=== PATIENT | male | born 1990 | race Caucasian/White ===

== ENCOUNTER 2020-07-27 22:35 | Emergency (ER) | payer MEDICAID, SELFPAY ==
[2020-07-27 22:35] VITALS: BP 128/72; PULSE 102; RESP 18; TEMP 36.9; O2SAT 97; BMI 67.2
--- NOTE | 2020-07-27 22:45 | CT_ITS ---
HISTORY: FELL DOWN 10 STAIRS, ABRASIONS AND HEAD PAIN EXAMINATION: CT Head or Brain W/O Contrast Injection .Sagittal and coronal 2-D reformats were performed on the acquisition scanner. TECHNIQUE: Multiple axial images were obtained of the head without intravenous contrast. A radiation dose optimization technique was used for this scan. IV Contrast dosage and agent: None 300 COMPARISON: None FINDINGS: BRAIN PARENCHYMA: No intra- or extra-axial hemorrhage. No evidence of acute infarct. No intracranial mass or mass effect. There is preservation of the cole/white matter interface. Posterior fossa structures are unremarkable. CSF SPACES: Appropriate for age. No hydrocephalus. Basal cisterns are patent. CALVARIUM, SKULL BASE, PARANASAL SINUSES AND MASTOID AIR CELLS: Paranasal sinuses are clear. No discrete lytic or blastic abnormalities. ORBITS: Both globes, extraocular muscles, optic nerves and retrobulbar fat appear unremarkable. ASPECTS Score for Acute Strokes: 10 CT/Brain/Head without Contrast IMPRESSION: Negative Brain CT without contrast. Individualized dose optimization techniques were used for this CT. at 2334 Reported and signed by: Alphonso Rivera MD Electronically Signed: Alphonso Rivera MD at 23:33 EST Tel , Service support ,
--- NOTE | 2020-07-27 22:45 | CT_ITS ---
HISTORY: FELL DOWN 10 STAIRS, ABRASIONS AND HEAD PAIN TECHNIQUE: Helically acquired images were obtained of the cervical spine without contrast. 2D reformatted images were reviewed. A radiation dose optimization technique was used for this scan. COMPARISON: None FINDINGS: # of images incl. paperwork: 476 Bony alignment is normal. Disc heights and vertebral body heights are normal. Facets are well aligned. Prevertebral and paraspinal soft tissues are normal. No bones within the cervical spine are fractured. Visualized portion of lung apices are normal. CT/Spine Cervical without Contras IMPRESSION: Normal cervical spine CT. Individualized dose optimization techniques were used for this CT. at 2335 Reported and signed by: Alphonso Rivera MD Electronically Signed: Alphonso Rivera MD at 23:34 EST Tel , Service support ,
--- NOTE | 2020-07-27 22:46 | ED.VIS.GEN ---
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 He notes multiple abrasions to the right leg and to his head. No loss of conscious. No nausea vomiting. He has pain mostly in the right shoulder upon to his clavicle region. He notes tingling of the right hand. He notes neck pain. He notes that that is mostly on the right side especially when he turns to the right side. Past Medical History - Allergies and Home Meds Allergies/Adverse Reactions: Allergies No Known Allergies Allergy (Verified 07/27/20 22:41) Primary Care Physician: NOT,DEFINED [NON-STAFF] - Past Medical History: - - Obesity Surgical History: noncontributory Smoking Status: Never smoker Drugs: None Review of Systems General: Denies: Chills, Fever, Sweats Eyes: Denies: Visual changes - bilaterally, Diplopia ENT: Denies: Rhinorrhea, Sore throat Cardiovascular: Reports: Chest pain. Denies: Palpitations Respiratory: Denies: Dyspnea, Cough, Dyspnea on exertion Gastrointestinal: Denies: Abdominal pain, Nausea, Vomiting, Diarrhea, Melena, Hematochezia Genitourinary: Denies: Dysuria, Hematuria, Frequency Musculoskeletal: Reports: Neck pain, Extremity Pain. Denies: Back pain Skin: Reports: Wounds. Denies: Rash Neurological: Denies: Headache, Weakness, Numbness Physical Exam Vital Signs/Narrative: Vital Signs Temp Pulse Resp BP Pulse Ox 07/27/20 22:35 98.4 F 102 H 18 128/72 H 97 Inital Vital Signs reviewed: Yes General: Well nourished, Well developed, Obese, No Acute Distress Head: Normocephalic, Trauma - Large abrasion right temporal parietal region. No bony depression noted. Eyes: Perrl, EOMI ENT: Moist mucous membranes, No rhinorrhea Neck: Supple, - - Right neck tenderness to palpation. Painful range of motion. Body habitus limits examination Cardiovascular: Regular rate, Regular rhythm, No murmurs Respiratory: No distress, CTA bilaterally, Chest tenderness - There is tenderness to palpation over the right clavicle and upper chest on the right. Abdomen: Soft, Nontender, Nondistended, Normal bowel sounds Back: Nontender, Normal Inspection Extremities: No edema, Tenderness - Tenderness palpation over the right shoulder. He is able to AB duct to 90 degrees. Skin: Normal color, No rash, Trauma - Multiple abrasions scalp, right leg. Neurological: Alert, Oriented x3, Cranial nerves II-XII grossly intact, Normal Strength, Normal Sensation Psychological: Normal affect, Normal Mood Diagnostic/Tx/Re-eval Clinical Impression(s) from Imaging Studies Brain CT 07/27/20 22:45 IMPRESSION: Negative Brain CT without contrast. Individualized dose optimization techniques were used for this CT. at 2334 Reported and signed by: Alphonso Rivera MD Electronically Signed: Alphonso Rivera MD at 23:33 EST Tel , Service support , Cervical Spine CT 07/27/20 22:45 IMPRESSION: Normal cervical spine CT. Individualized dose optimization techniques were used for this CT. at 2335 Reported and signed by: Alphonso Rivera MD Electronically Signed: Alphonso Rivera MD at 23:34 EST Tel , Service support , Clavicle X-Ray 07/27/20 22:58 IMPRESSION: Arthritic disease to the right acromioclavicular joint but I do not perceived as acute posttraumatic injury. at 2312 Reported and signed by: Alphonso Rivera MD Electronically Signed: Alphonso Rivera MD at 23:11 EST Tel , Service support , Shoulder X-Ray 07/27/20 22:58 IMPRESSION: Minimal arthritic changes to the Right shoulder. at 2314 Reported and signed by: Alphonso Rivera MD Electronically Signed: Alphonso Rivera MD at 23:13 EST Tel , Service support , - Medical Decision Making CT of the brain and cervical spine were negative for fracture. Plain films of the shoulder and clavicle were obtained. My interpretation of these films are no acute fracture. Patient received a dose of Toradol and Flexeril. Prescription for Flexeril at home. Work restrictions will be given. Patient is to expect soreness return if worsening or concerns ED Disposition - Plan for ED Patient: Disposition: Home or Assisted Living Diagnosis: Contusion of left shoulder, Multiple abrasions, Head injury due to trauma, Acute cervical myofascial strain Instructions: ED Shoulder Contusion, ED Neck Sprain or Strain, ED Head Injury (Adult) Prescriptions: cycloBENZAPRine HCl [Flexeril] 10 mg PO TID PRN #15 tab PRN Reason: Muscle Spasm Prescription Printed Additional Instructions: Follow-up with your primary care physician or physician of choice. Tylenol Motrin is fine for pain. You are to expect soreness to be worse tomorrow. However it should improve over the next week.
--- NOTE | 2020-07-27 22:58 | RAD_ITS ---
HISTORY: PAIN S/P FALL DOWN 10 STEPS Exam: Right Shoulder 3 views COMPARISON: None FINDINGS: # of images incl. paperwork: 3 XR Shoulder Min 2 Views: The humeral head is well-positioned within the glenoid fossa. No fracture or subluxation. The acromioclavicular joint is arthritic with an osteophyte but I do not believe fracture or . The adjacent chest is unremarkable. RAD/Shoulder min 2 Views IMPRESSION: Minimal arthritic changes to the Right shoulder. at 2314 Reported and signed by: Alphonso Rivera MD Electronically Signed: Alphonso Rivera MD at 23:13 EST Tel , Service support ,
--- NOTE | 2020-07-27 22:58 | RAD_ITS ---
HISTORY: Felled out appendicitis. 2 views of the right clavicle. Findings: Acromioclavicular joint arthritis is present with osteophyte. I do not believe this is an acute fracture or an before meals separation. The right humeral head sits well within the glenoid fossa. RAD/Clavicle IMPRESSION: Arthritic disease to the right acromioclavicular joint but I do not perceived as acute posttraumatic injury. at 2312 Reported and signed by: Alphonso Rivera MD Electronically Signed: Alphonso Rivera MD at 23:11 EST Tel , Service support ,
[2020-07-27 23:20] VITALS: BP 157/94; PULSE 94; RESP 16; O2SAT 98
[2020-07-28] MEDS: Ketorolac 60 MG/2 ML Vial IM (00:23)
[2020-07-28] MEDS: cycloBENZAPRine HCl 10 MG Tablet PO (00:25)
[2020-07-28 00:29] VITALS: BP 162/95; PULSE 95; RESP 19; O2SAT 97
== END 2020-07-28 00:30 | disposition home or self-care (01) ==
PROVIDERS: Emergency Provider Emergency Medicine
DX: S16.1XXA Strain of muscle, fascia and tendon at neck level, initial encounter (principal); S40.012A Contusion of left shoulder, initial encounter; S00.91XA Abrasion of unspecified part of head, initial encounter; S80.811A Abrasion, right lower leg, initial encounter; W10.9XXA Fall (on) (from) unspecified stairs and steps, initial encounter; Y93.9 Activity, unspecified; Y92.9 Unspecified place or not applicable; Y99.9 Unspecified external cause status; E66.9 Obesity, unspecified
CPT/HCPCS: 70450; 72125; 73000; 73030; 96372; 99284

== ENCOUNTER 2021-01-14 14:00 | Outpatient (RCR) | payer MEDICAID, SELFPAY ==
--- NOTE | 2020-10-17 13:05 | HP.PTEVAL_ITS ---
Patient's Visit Information TRAE MEREDITH is a 30 year old M referred to Physical Therapy by Roberto Woodruff PA-C with a diagnosis of Bilateral Knee Pain. Date of Evaluation: 10/16/20 Physical Therapist: Dottie Hernández DPT - Visit Plan Frequency: 2x /Week Duration: 4 Weeks Plan: Focus on LE and core strength/stabilization in an aquatic setting to improve functional mobility and decrease pain - Subjective Patient reports he was in an accident in Jul fell down a flight of stairs. He had bruising along the medial side of the joint and radiates to the outside of the knee joint- reports they are contusions in the legs and has tingling in the feet. MD reports that he had x-rays and it showed OA. Left is worse than right. Worst: 7.5/10. Agg: bending it more than 90 degree, stairs. Eases: Ibuprofen, deep tissue vibrator, icy hot. Best: sitting- one he sits down it takes about 30 min for the pain to goes away. Sleep: not disturbed side or belly. Does have N/T in both legs mostly the left. Describes the pain as really achy and deep inside. Does not have discomfort when he rubs it- harder under the surface of the skin. 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 When he gets down on the knee and he stands back up he feels like a knife is going through it. Fully I with ADL?s including dressing, driving, bathing. Right MCL tear on the right knee and strained ACL on the left- but was able to go back to football- high school. No other issues with his knees. No Cortisone injections or MRI from the MD. Sent him to try aquatic therapy and Ibuprofen. PMHx: none Meds: none - Objective Posture: FH, RS, can correct with verbal and tactile cues but does not maintain. Gait: toes turned out to the side with poor heel.toe pattern. Observation: obese- increased pes planus bilaterally. HR/TR: able with UE A. SLS: 3 sec on each side without UE A. Squat: unable to perform. Sit to Stand: can perform without UE A but reports pain. ROM: 0-100 degrees with restriction of tissue and pain. Strength: Core: poor, hip: 4/5 throughout, Knee: 5/5 Ankle: 5/5. Flex: HS: severe, Gastroc: severe. Palpation: tender along medial joint line- possible lymphedema in bilateral LE as skin is hard - Goals Goal 1:: Patient will be I with HEP and progression Goal Time Frame: 4-6 Weeks Goal 2:: Patient will asc/desc 8 stairs recip with 1 HR and good technique Goal Time Frame: 4-6 Weeks Goal 3:: Patient will SLS for 15 sec without LOB Goal Time Frame: 4-6 Weeks Goal 4:: Patient will demo 5/5 strength in LE Goal Time Frame: 4-6 Weeks - Rehabilitation Potential Physical Therapy Diagnosis: Patient presents with hypomobility- he has decreased painfree ROM, strength, proprioception, flexibility and muscular endurance leading to poor posture, increased pain and decreased ability to perform ADL's and work related tasks Rehabilitation Potential: Fair - Anticipated Interventions Patient/Client Instruction: Educate patient on: Benefits of Fitness Program Therapeutic Exercise to Include: Strength training, Endurance training, Balance training, Coordination, Agility training, Body mechanics, Postural training, Flexibilty training, Gait and locomotor training, Neuromotor development, In an aquatic setting, Passive ROM, Active ROM, Dynamic Lumbar Stabilization, Scapular Strength/Stabilization For the Purpose of:: To improve muscle performance and motor function Thank you for the opportunity to evaluate your patient. For Medicare and Medicare HMO plans, please review the plan of care and approve it. It will need to be FAXED BACK to us at [phone] for Medicare purposes. For Medicare only, by signing this I certify the plan of care. Please let me know if there are questions or concerns regarding this plan of care. Physician Signature: Date:
--- NOTE | 2020-10-17 13:06 | HP.PTEVAL2_ITS ---
Patient's Visit Information TRAE MEREDITH is a 30 year old M referred to Physical Therapy by Roberto Woodruff PA-C with a diagnosis of Cervicalgia. Date of Evaluation: 10/16/20 Physical Therapist: Dottie Hernández DPT - Visit Plan Frequency: 2x /Week Duration: 4 Weeks Plan: Ultrasound as modality of choice- restore ROM and scapular strength/stabilization - Subjective Subjective: Patient reports that in Jul when he fell down the stairs and his head hit a concrete wall. He went ER and they took x-rays or the upper extremities and cervical spine which were negative. No normal physical therapy and finally got in to see Dr. Lopez a couple of weeks ago. He took repeat x- rays and diagnosed him with a strain in the cervical spine and sent him to physical therapy. He spoke to him about injections and pt declined. He reports that he feels like he was hit by a freight train. He reports pain is located the occiput to his CT junction- right is worse than left. Worst: 8.5/10 Agg: moving his neck, bending forwards, turning to look behind him in the car. Best: 0/10. Eases: physical activity, deep vibrations. Once in a while he has N/T in bilateral hands but that is not new. 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 Pain can radiate to the elbow only with vibration. Describes the dull and achy and sharp/shooting depending on his mobility. Sleep: disturbed- sleeping in a chair- wakes up a lot with pain in his neck and a little in his arms. Last time he tried to sleep in a bed was a few weeks ago. Headaches- so lightheaded that he gets confused- they come and go. Chiro diagnosed him a long time ago with a neck. PARDO are not a new thing for him. He is not currently seeing a chiropractor- not in a few years. Neck bothers him more than his legs but they are both hinder him from his ADL's. Has had concussions prior. No blurred vision but sometimes dizzy but that is not new. PMHx/Meds: none Meds: none - Objective Objective: Posture: FH, RS, can correct with verbal and tactile cues but does not maintain. Gait: toes turned out to the side with poor heel.toe pattern. Palpation: tender along upper trap, bicipital groove, cervical and thoracic paraspinals, and along the medial border of the scapula. ROM: UE: WFL in all planes, Cervical Spine: flexion: decreased by 50%, Extn: decreased by 75%, SB: decreased by 50% bilateral with pain with SB right, Rotation: decreased by 50% increased pain with Rot left. Strength: Cervical isometrics: 4/5 throughout with pain, Scap: fair minus, Shoulder left: 4+/5 throughout Right: 4-/5 th roughout with pain, Elbow/Wrist/hand: bilateral 5/5. Special Test: Spurlings: positive, Distraction: positive - Goals Goal 1:: Patient will be I with HEP and progression Goal Time Frame: 4-6 Weeks Goal 2:: Patient will maintain proper posture t/o tx session to demo increased scap s.s Goal Time Frame: 4-6 Weeks Goal 3:: Patient will demo full AROM of the cervical spine Goal Time Frame: 4-6 Weeks Goal 4:: Patient will report sleeping through the night for 1 week in his bed Goal Time Frame: 4-6 Weeks - Rehabilitation Potential Physical Therapy Diagnosis: Patient presents with hypomobility-she has decreased cervical ROM, poor scapular strength/stabilization and muscular endurance leading to poor posture and increased pain with ADL's. Rehabilitation Potential: Fair - Anticipated Interventions Patient/Client Instruction: Educate patient on: Benefits of Fitness Program Therapeutic Exercise to Include: Strength training, Endurance training, Agility training, Body mechanics, Postural training, Flexibilty training, Neuromotor development, Passive ROM, Active ROM, Dynamic Lumbar Stabilization, Scapular Strength/Stabilization For the Purpose of:: To improve muscle performance and motor function Manual Therapy Techniques to Include: Mobilization, Functional dry needling, Soft tissue mobilization For the Purpose of:: To increase ROM TENS: Yes Cryotherapy (ice pack, ice massage): Yes Thermo therapy (hot pack): Yes Ultrasound (thermal/non thermal): Yes For the Purpose of:: To decrease pain Thank you for the opportunity to evaluate your patient. For Medicare and Medicare HMO plans, please review the plan of care and approve it. It will need to be FAXED BACK to us at [phone] for Medicare purposes. For Medicare only, by signing this I certify the plan of care. Please let me know if there are questions or concerns regarding this plan of care. Physician Signature: Date:
--- NOTE | 2021-01-14 14:43 | HP.PTDCS(2) ---
It has been my pleasure to treat TRAE MEREDITH referred by Roberto Woodruff PA-C, with the diagnosis of Cervicalgia for a total of 12 visit(s). Discharge Date: Please see the following information for a summary of their discharge status. Subjective: Patient reports that he still has a lot of pain in the right side and pinches but he feels that he has more range of motion. % Improvement: 50 Objective/Function/Assessment: Posture: FH, RS, can correct with verbal and tactile cues but does not maintain. Gait: toes turned out to the side with poor heel.toe pattern. Palpation: tender along upper trap, bicipital groove, cervical and thoracic paraspinals, and along the medial border of the scapula. ROM: UE: WFL in all planes, Cervical Spine: WLF in all planes Strength: Cervical isometrics: 4+/5 throughout with pain, Scap: fair minus, Shoulder left: 4+/5 throughout Right: 4+/5 throughout with pain, Elbow/Wrist/hand: bilateral 5/5. Special Test: Spurlings: positive, Distraction: positive Patient Goals: Improve Mobility, Improve Function, Decrease Pain, Alleviate Pain, Improve ROM, Sleep Normal Goal 1:: Patient will be I with HEP and progression Goal Progress: Goal Met Goal 2:: Patient will maintain proper posture t/o tx session to demo increased scap s.s Goal Progress: Progressing Goal 3:: Patient will demo full AROM of the cervical spine Goal Progress: Goal Met Goal 4:: Patient will report sleeping through the night for 1 week in his bed Goal Progress: Progressing Plan: 01/14/2021 Discharge- MRI and possible injections If there are questions or concerns regarding this patient's physical therapy, please feel free to call me at [phone]. Thank you for the referral of this patient. Sincerely, Dottie Hernández DPT
--- NOTE | 2021-01-14 14:46 | HP.PTREVAL ---
Roberto Woodruff PA-C, It has been my pleasure to treat TRAE MEREDITH over the last 12 visits for Bilateral Knee Pain. Please see the progress note below for an update on the physical therapy plan of care! Subjective: Patient reports that doing PT his mobility is back but its still not there yet. He still has swelling along the medial knee which is accompanied by pain. Worst: 8/10 Agg: walking. The pain comes and goes. He feels that he has more strength and endurance to gain. Objective/Function: Posture: FH, RS, can correct with verbal and tactile cues but does not maintain. Gait: toes turned out to the side with poor heel.toe pattern. Observation: obese- increased pes planus bilaterally. HR/TR: able with UE A. SLS: 7 sec on each side without UE A. Squat: unable to perform. Sit to Stand: can perform without UE A but reports pain. ROM: 0-110 degrees with restriction of tissue and pain. Strength: Core: fair, hip: 4+/5 throughout, Knee: 5/5 Ankle: 5/5. Flex: HS: severe, Gastroc: severe. Palpation: tender along medial joint line- possible lymphedema in bilateral LE as skin is hard and dimpled Plan Plan: 01/14/2021: Continue with aquatic therapy to progress towards goals. *f/u with supervising PT next appt. Would recommend continued AT at this time d/t potential for greater improvement. Progress is slow-going. Seems to be limited by WBing and therefore painfulnesss, minimal progressions noted at this point d/t this. *f/u with new HEP SLS glute med. strengthening. Focus on LE and core strength/stabilization in an aquatic setting to improve functional mobility and decrease pain Balance/Gait/Functional tests - Balance/Special Test Scores Oswestry Neck Score: 22 Lower Extremity Functional Score: 41 Goals Goal 1:: Patient will be I with HEP and progression Goal Time Frame: 4-6 Weeks Goal 2:: Patient will asc/desc 8 stairs recip with 1 HR and good technique Goal Time Frame: 4-6 Weeks Goal 3:: Patient will SLS for 15 sec without LOB Goal Time Frame: 4-6 Weeks Goal 4:: Patient will demo 5/5 strength in LE Goal Time Frame: 4-6 Weeks Anticipated Interventions Patient/Client Instruction: Educate patient on: Benefits of Fitness Program Therapeutic Exercise to Include: Strength training, Endurance training, Balance training, Coordination, Agility training, Body mechanics, Postural training, Flexibilty training, Gait and locomotor training, Neuromotor development, In an aquatic setting, Passive ROM, Active ROM, Dynamic Lumbar Stabilization, Scapular Strength/Stabilization For the Purpose of:: To improve muscle performance and motor function Please do not hesitate to contact me at [phone] by phone or if you have questions or concerns regarding this new plan of care! Sincerely, SABINO GaminoT
== END 2021-01-14 19:00 | disposition home or self-care (01) ==
LOC: PT 14:00
PROVIDERS: Referring Provider Physician Assistant Surgical; Visit Provider Physician Assistant Surgical
DX: S13.4XXD Sprain of ligaments of cervical spine, subsequent encounter (principal); S80.01XD Contusion of right knee, subsequent encounter; S80.02XD Contusion of left knee, subsequent encounter; X58.XXXD Exposure to other specified factors, subsequent encounter; M17.0 Bilateral primary osteoarthritis of knee
CPT/HCPCS: 97035; 97110; 97113; 97162; 97164

== ENCOUNTER 2021-02-15 15:17 | Emergency (ER) | payer MEDICAID, SELFPAY ==
[2021-02-15 15:18] VITALS: BP 129/84; PULSE 107; RESP 20; TEMP 37.1; O2SAT 95; BMI 66.0
--- NOTE | 2021-02-15 16:33 | EX.ED.DYSGE1 ---
HPI History of Present Illness Chief Complaint: Cellulitis Detail of Chief Complaint: Redness to left leg Informant: patient Narrative Narrative: Patient presents to the emergency department with redness and swelling to his left leg that started yesterday. Initially started with some discomfort in the leg. Today he has had some chills and a fever up to 100 when he was seen at urgent care. He was referred to the ER. Patient also states he has had decreased ability to taste and smell here recently. Patient is worried about Covid although he states he has had both his Covid vaccines. Patient otherwise has no medical history. PFSH PFSH Home Medications NK 02/15/21 [History Last Taken Unknown] cephalexin 500 mg PO Q6 #40 capsule 02/15/21 [Rx Last Taken Unknown] sulfamethoxazole-trimethoprim 1 tab PO BID #20 tablet 02/15/21 [Rx Last Taken Unknown] Allergy/AdvReac Type Severity Reaction Status Date / Time No Known Allergies Allergy Verified 02/15/21 15:20 Social History Smoking Status: Never smoker ROS [facility] ED Constitutional Constitutional ED: Reports systems reviewed and no addt'l complaints, except as documented and fever(s); Denies body ache(s), change in weight or chills Eyes Eyes: Denies acute decrease in peripheral vision, change in vision, double vision or loss of vision ENT ENT ED: Reports none; Denies ear pain, lip swelling, loss taste/smell, neck pain, otalgia or sore throat Cardiovascular Cardiovascular: Reports none; Denies abdominal pain, chest pain with activity, leg edema, lightheadedness, palpitations, rapid heart rate or syncope Respiratory/Chest Respiratory/Chest: Reports none and cough; Denies change in mental status, dry cough, dyspnea, hemoptysis, shortness of breath at rest or shortness of breath with exertion Gastrointestinal Gastrointestinal: Reports none; Denies abdominal pain, change in stool character, diarrhea, hematemesis, hematochezia, melena, rectal bleeding or vomiting Genitourinary Genitourinary ED: Reports none; Denies abdominal discomfort, anuria, dysuria, genital pain or polyuria Musculoskeletal Musculoskeletal: Reports none and myalgias; Denies arthralgias, back pain, difficulty walking, extremity pain or muscle weakness Integumentary Reports none and rash; Denies abscess Neurologic Neurologic: Reports none and headache(s); Denies abnormal gait, confusion, focal weakness, frequent falls, loss of vision, numbness, paresthesias, radicular pain, vertigo or weakness Psychiatric Psychiatric: Reports systems reviewed and no addt'l complaints, except as documented and none; Denies behavioral changes, confusion, difficulty concentrating, hallucinations, suicidal ideation, tactile hallucinations or visual hallucinations Endocrine Endocrinology: Denies none, cold intolerance, excessive sweating, fatigue or heat intolerance Hematologic/Lymphatic Hematologic/Lymphatic: Reports none; Denies anemia, easy bleeding or easy bruising Allergic/Immunologic Allergic/Immunologic ED: Denies as per HPI, none, lip swelling, mouth swelling, throat swelling, tongue swelling or hives EXAM Physical Exam Const Vital Signs: 02/15/21 15:18 02/15/21 17:05 02/15/21 17:45 Temperature 98.7 F 98.8 F Temperature Source Temporal Oral Pulse Rate 107 H 91 Respiratory Rate 20 H 16 Respiratory Effort Normal Non-Labored Respiratory Pattern Normal Blood Pressure 129/84 H 148/79 H Blood Pressure Mean 99 102 Pulse Ox 95 99 Oxygen Delivery Method Room Air Room Air 02/15/21 18:54 Temperature 98.8 F Temperature Source Oral Pulse Rate 89 Respiratory Rate 18 Respiratory Effort Respiratory Pattern Blood Pressure 153/87 H Blood Pressure Mean 109 Pulse Ox 97 Oxygen Delivery Method Room Air Positive well nourished and well developed General Appearance ED: well developed and NAD HEENT Reports TM's clear and moist mucous membranes normocephalic and atraumatic; Negative for trauma or tenderness Tympanic Membrane ED: Yes TM's clear Eyes PERRL and EOMs intact bilaterally General Eye ED: Negative for pale conjunctiva or scleral icterus Neck no lymphadenopathy, supple and no JVD General: Negative for tenderness Chest Wall inspection of chest normal and palpation of chest normal Chest: Negative for tenderness Resp normal respiratory effort and clear to auscultation bilaterally Effort and Inspection: Negative for respiratory distress or pain with movement Auscultation: Negative for rhonchi, wheezes or diminished lung sounds Cardio regular rate, regular rhythm, S1 normal heart sound, S2 normal heart sound and no murmurs Peripheral Pulses: pulses 2+ throughout GI normal to inspection, nondistended, normoactive bowel sounds, soft to palpation, non-tender, non-distended and no masses GI Narrative: Patient is morbidly obese and has a large umbilical hernia that is nontender. Back/Spine no CVA tenderness and no thoracic nor lumbar tenderness Extremity Extremity Narrative: Patient has diffuse erythema of the left lower extremity below the knee consistent with cellulitis. Patient has diffuse edema and lymphedema of both lower extremities. General Extremety ED: Negative for edema General Extremity: Negative for edema Neuro oriented x3, CN's II-XII intact bilaterally, no sensory deficits noted and gait normal Sensorium / Orientation: awake, alert, oriented to person, oriented to place and oriented to time Motor Exam: strength 5/5 throughout and strength abnormal Psych mental status grossly normal Skin no rashes or lesions noted and no wounds MDM MDM MDM Narrative Medical decision making narrative: Labs discussed with patient. Patient was given Unasyn 3 g IV. Case was with hospitalist and it was not felt that patient met admission criteria. His lactate is normal. He is got a normal white blood cell count and otherwise patient is relatively healthy. Patient had the area of erythema outlined with marker. He will be started on Keflex and Bactrim and advised to return if increased redness, fevers, or conditions worsen anyway. Lab Data Attestation: I reviewed the patient's lab results. Labs: Laboratory Results - last 24 hr 02/15/21 02/15/21 02/15/21 17:10 17:10 17:10 WBC 10.1 RBC 4.56 L Hgb 14.1 Hct 42.9 MCV 94.1 H MCH 30.9 MCHC 32.9 RDW Std Deviation 44.0 H RDW Coeff of Devin 12.7 Plt Count 189 MPV 10.4 Immature Gran % (Auto) 0.500 Neut % (Auto) 78.7 H Lymph % (Auto) 9.4 L Rice % (Auto) 10.0 Eos % (Auto) 1.0 Baso % (Auto) 0.4 Absolute Neuts (auto) 8.0 H Absolute Lymphs (auto) 0.95 Nucleated RBC % 0 Sodium 140 Potassium 3.7 Chloride 103 Carbon Dioxide 30.0 Anion Gap 7 BUN 12 Creatinine 0.91 Estim Creat Clear Calc 131.70 Est GFR (MDRD) Af Amer 123 Est GFR (MDRD) Non-Af 102 BUN/Creatinine Ratio 13.2 Glucose 99 Lactic Acid 0.9 Calcium 9.1 Discharge Plan Triage Chief Complaint: Cellulitis ED Provider: Abigail Chandler Dx/Rx/DC Orders Clinical Impression: Cellulitis of left leg Instructions: ED Cellulitis, Discharge Instructions for ... Prescriptions: New sulfamethoxazole-trimethoprim [sulfamethoxazole-trimethoprim] 1 TABLET tablet 1 tab PO BID Qty: 20 RF: 0 cephalexin [cephalexin] 500 MG capsule 500 mg PO Q6 Qty: 40 RF: 0 No Action NK RF: 0 Primary Care Provider: Care Physician,No Primary Referrals: Giovanny Townsend MD [STAFF PHYSICIAN] - 3-5 Days Care Physician,No Primary [Primary Care Provider] - Disposition Disposition: Home, Self Care
[2021-02-15 17:21] LABS: Absolute Lymphocyte Count 0.95 X10^3/uL (0.83-4.51); Basophil# 0.04 X10^3/uL; Basophil% 0.4 % (0-1); Hematocrit 42.9 % (40-54); Hemoglobin 14.1 g/dL (13.0-16.5); Lymphocyte # 0.95 X10^3/ul (0.83-4.51); Lymphocyte % 9.4 % (19-41); Mean Corp Hgb Conc 32.9 g/dL (32-36); Mean Corpuscular Hgb 30.9 pg (27.0-32.0); Mean Corpuscular Volume 94.1 fL (80-94); Mean Platelet Vol. 10.4 fl (6.2-12.0); Monocyte# 1.01 X10^3/uL; NRBC Flagged by Analyzer 0 % (0-5); Neutrophil # 7.98 X10^3/uL (2.7-7.7); Neutrophil % 78.7 % (47-70); Platelet Count 189 K/mm3 (150-450); RBC Distribution Width CV 12.7 % (11.6-14.6); Red Blood Count 4.56 M/mm3 (4.6-6.2); White Blood Count 10.1 K/mm3 (4.4-11.0)
[2021-02-15 17:35] LABS: Anion Gap 7 (5-15); BUN 12 mg/dL (7-18); BUN/Creat Ratio 13.2 RATIO (10-20); Calcium,Total 9.1 mg/dL (8.5-10.1); Chloride 103 mmol/L (98-107); Creatinine, Serum 0.91 mg/dL (0.70-1.30); EST Glomerular Filtration Rate 102 mL/min (>60); Est Glom Filt Rate - Afr Amer 123 mL/min (>60); Glucose 99 mg/dL (74-106); Potassium 3.7 mmol/L (3.5-5.1); Sodium Level 140 mmol/L (136-145)
[2021-02-15 17:43] LABS: Lactic Acid 0.9 mmol/L (0.4-1.9)
[2021-02-15] MEDS: 0.9% Normal Saline 1,000 ML 150 ML IV (17:43)
[2021-02-15 17:45] VITALS: BP 148/79; PULSE 91; RESP 16; TEMP 37.1; O2SAT 99
[2021-02-15 18:54] VITALS: BP 153/87; PULSE 89; RESP 18; TEMP 37.1; O2SAT 97
[2021-02-15 20:25] VITALS: BP 149/78; PULSE 101; O2SAT 97
== END 2021-02-15 20:30 | disposition home or self-care (01) ==
PROVIDERS: Emergency Provider Emergency Medicine
DX: L03.116 Cellulitis of left lower limb (principal); Z20.822 Contact with and (suspected) exposure to COVID-19; K42.9 Umbilical hernia without obstruction or gangrene; I89.0 Lymphedema, not elsewhere classified; E66.01 Morbid (severe) obesity due to excess calories
CPT/HCPCS: 80048; 83605; 85025; 87040; 87426; 96361; 96365; 96366; 99284; J7030; A4216; J0295

== ENCOUNTER → 2021-12-25 | Outpatient (CLI) | payer MEDICAID, SELFPAY ==
[2021-12-25 12:32] LABS: Absolute Lymphocyte Count 1.23 X10^3/uL (0.83-4.51); Basophil# 0.06 X10^3/uL; Basophil% 0.7 % (0-1); Eosinophil# 0.27 X10^3/uL; Eosinophils% 3.2 % (0-5); Hematocrit 46.8 % (40-54); Hemoglobin 15.5 g/dL (13.0-16.5); Lymphocyte # 1.23 X10^3/ul (0.83-4.51); Lymphocyte % 14.6 % (19-41); Mean Corp Hgb Conc 33.1 g/dL (32-36); Mean Corpuscular Hgb 31.3 pg (27.0-32.0); Mean Corpuscular Volume 94.4 fL (80-94); Mean Platelet Vol. 11.8 fl (6.2-12.0); Monocyte# 0.89 X10^3/uL; Monocyte% 10.5 % (0-10); NRBC Flagged by Analyzer 0 % (0-5); Neutrophil # 5.96 X10^3/uL (2.7-7.7); Neutrophil % 70.5 % (47-70); Platelet Count 221 K/mm3 (150-450); RBC Distribution Width CV 12.2 % (11.6-14.6); RBC Distribution Width SD 42.4 fl (35.1-43.9); Red Blood Count 4.96 M/mm3 (4.6-6.2); White Blood Count 8.5 K/mm3 (4.4-11.0)
[2021-12-25 12:35] LABS: ALB/GLOB Ratio 1.1 RATIO (0.9-2.4); AST(SGOT) 25 U/L (15-37); Alanine Aminotransfer ALT/SGPT 54 U/L (16-61); Albumin, Serum 3.9 g/dL (3.2-5.0); Alkaline Phosphatase 72 U/L (45-117); Anion Gap 5 (5-15); BUN 21 mg/dL (7-18); BUN/Creat Ratio 22.8 RATIO (10-20); Calcium,Total 9.2 mg/dL (8.5-10.1); Chloride 104 mmol/L (98-107); Cholesterol 176 mg/dL (200); Creatinine, Serum 0.92 mg/dL (0.70-1.30); EST Glomerular Filtration Rate 100 mL/min (>60); Est Glom Filt Rate - Afr Amer 121 mL/min (>60); Globulin 3.6 g/dL (2.2-4.2); Glucose 110 mg/dL (74-106); High Density Lipoprotein 34 mg/dL; Potassium 4.3 mmol/L (3.5-5.1); Protein, Total 7.5 g/dL (6.4-8.2); Sodium Level 138 mmol/L (136-145); Thyroid Stim Hormone (TSH) 0.97 uIU/mL (0.358-3.74); Triglycerides 78 mg/dL; Very Low Density Lipoprotein 16 mg/dL (5-40)
[2021-12-25 12:51] LABS: Hemoglobin A1c 5.6 % (3.8-5.6)
== END | disposition home or self-care (01) ==
LOC: BIMLAB 09:32
PROVIDERS: PCP Internal Medicine; Referring Provider Internal Medicine; Visit Provider Internal Medicine
DX: E66.01 Morbid (severe) obesity due to excess calories (principal); K52.9 Noninfective gastroenteritis and colitis, unspecified
CPT/HCPCS: 36415; 80053; 80061; 83036; 84439; 84443; 85025

== ENCOUNTER → 2022-02-25 | Outpatient (CLI) | payer MEDICAID, SELFPAY | END | disposition home or self-care (01) | LOC: SL 19:59 | PROVIDERS: PCP Internal Medicine; Referring Provider Internal Medicine; Visit Provider Internal Medicine | DX: G47.10 Hypersomnia, unspecified (principal) | CPT/HCPCS: 95810 ==

== ENCOUNTER 2024-07-16 15:43 | Inpatient (IN) | payer MEDICAID, SELFPAY ==
[2024-07-16] VITALS (26 sets, daily range): BP systolic 56–138; BP diastolic 33–88; PULSE 93–129; RESP 12–33; TEMP 35.8; O2SAT 89–98; BMI 64.2
[2024-07-16 16:19] LABS: Bedside Glucose 229 mg/dL (74-106)
--- NOTE | 2024-07-16 16:29 | EKG12_ITS ---
Test Reason : CP Blood Pressure : */* mmHG Vent. Rate : 100 BPM Atrial Rate : 100 BPM P-R Int : 168 ms QRS Dur : 94 ms QT Int : 354 ms P-R-T Axes : 24 31 32 degrees QTcB Int : 456 ms Normal sinus rhythm Normal ECG Confirmed by Julio C Hu ([id number]), international editorial producer KAMLESH GRIGSBY ([id number]) on 07/17/2024 10:02:00 AM Referred By: Confirmed By: Julio C Hu
--- NOTE | 2024-07-16 16:29 | EDS_ITS ---
HPI History of Present Illness Chief Complaint: General Illness Informant: patient and family Narrative Narrative: Patient here with sister for evaluation. 3-day history fatigue myalgias and productive cough. No fevers. No vomiting diarrhea. Decreased appetite. Decreased p.o. intake. Denies dysuria. Sick contacts with another sister who just got diagnosed with influenza A. Patient denies any chronic medical history. Denies dyspnea.Patient was doctor's office with his mother when he felt more symptoms. PFSH PFSH Medical History Bilateral foot pain Hypersomnolence Chronic diarrhea Morbid obesity COVID-19 Umbilical hernia Chronic neck pain Lymphedema Migraines Cellulitis History of fracture Chronic bronchitis Seasonal allergies Home Medications ?Medication ?Instructions ?Recorded ?Last Taken ?Type ibuprofen 200 mg capsule 200 mg PO Q6H PRN fever or p ain 04/24/21 Unknown History fluticasone propionate 50 2 spray intranasal DAILY 03/30 Unknown History mcg/actuation nasal spray,suspension Allergy/AdvReac Type Severity Reaction Status Date / Time No Known Allergies Allergy Verified 07/16/24 15:49 Family History Father Cancer Hypertension Hyperlipemia Diabetes Heart disease Mother Cancer Hyperlipemia Breast cancer Diabetes Sister Diabetes Other Asthma Surgical History History of local excision of skin lesion Social History Smoking Status: Never smoker alcohol intake: never substance use type: does not use ROS ROS ED Constitutional Constitutional ED: Reports other Details: Fatigue, decreased appetite ; Denies chills, fever(s) or sweats ENT ENT ED: Denies sore throat Cardiovascular Cardiovascular: Denies chest pain, leg edema, palpitations or racing heartbeat Respiratory/Chest Respiratory/Chest: Reports cough; Denies dyspnea or dyspnea on exertion Gastrointestinal Gastrointestinal: Denies abdominal pain, diarrhea, nausea or vomiting Genitourinary Genitourinary ED: Denies dysuria, hematuria or urinary frequency Musculoskeletal Musculoskeletal: Reports myalgias; Denies back pain, extremity pain or neck pain Integumentary Denies rash or wounds Neurologic Neurologic: Denies headache(s), paresthesias or weakness EXAM Physical Exam Const Vital Signs: 07/16/24 15:44 07/16/24 16:30 07/16/24 16:30 Temperature 96.4 F L Temperature Source Axillary Pulse Rate 129 H 121 H Pulse Rate [Lying] Pulse Rate [Sitting (for 1 minute prior to obtaining)] Respiratory Rate 20 H 20 H Respiratory Effort Normal Respiratory Pattern Normal Blood Pressure 100/70 75/56 L Blood Pressure [Lying] Blood Pressure [Sitting (for 1 minute prior to obtaining)] Blood Pressure Mean 80 62 Blood Pressure Mean [Lying] Blood Pressure Mean [Sitting (for 1 minute prior to obtaining)] Pulse Ox 97 92 Oxygen Delivery Method Room Air Room Air Oxygen Flow Rate (L/min) 07/16/24 16:33 07/16/24 16:42 07/16/24 17:02 Temperature Temperature Source Pulse Rate 125 H 123 H Pulse Rate [Lying] Pulse Rate [Sitting (for 1 minute prior to obtaining)] Respiratory Rate 21 H 33 H Respiratory Effort Normal Respiratory Pattern Normal Blood Pressure 84/65 L Blood Pressure [Lying] Blood Pressure [Sitting (for 1 minute prior to obtaining)] Blood Pressure Mean 71 Blood Pressure Mean [Lying] Blood Pressure Mean [Sitting (for 1 minute prior to obtaining)] Pulse Ox 93 Oxygen Delivery Method Room Air Oxygen Flow Rate (L/min) 07/16/24 17:05 07/16/24 17:05 07/16/24 17:30 Temperature Temperature Source Pulse Rate 116 H 115 H Pulse Rate [Lying] Pulse Rate [Sitting (for 1 minute prior to obtaining)] Respiratory Rate 14 23 H Respiratory Effort Respiratory Pattern Blood Pressure 119/74 119/74 56/33 L Blood Pressure [Lying] Blood Pressure [Sitting (for 1 minute prior to obtaining)] Blood Pressure Mean 89 84 42 Blood Pressure Mean [Lying] Blood Pressure Mean [Sitting (for 1 minute prior to obtaining)] Pulse Ox 94 Oxygen Delivery Method Room Air Oxygen Flow Rate (L/min) 07/16/24 17:31 07/16/24 17:37 07/16/24 17:40 Temperature Temperature Source Pulse Rate 112 H 120 H Pulse Rate [Lying] Pulse Rate [Sitting (for 1 minute prior to obtaining)] Respiratory Rate 20 H 21 H Respiratory Effort Respiratory Pattern Blood Pressure 86/58 L 89/59 L Blood Pressure [Lying] Blood Pressure [Sitting (for 1 minute prior to obtaining)] Blood Pressure Mean 67 68 Blood Pressure Mean [Lying] Blood Pressure Mean [Sitting (for 1 minute prior to obtaining)] Pulse Ox 95 91 95 Oxygen Delivery Method Room Air Room Air Oxygen Flow Rate (L/min) 07/16/24 18:00 07/16/24 18:30 07/16/24 18:33 Temperature Temperature Source Pulse Rate 96 Pulse Rate [Lying] Pulse Rate [Sitting (for 1 minute prior to obtaining)] Respiratory Rate 24 H Respiratory Effort Respiratory Pattern Blood Pressure 98/53 L 115/86 H Blood Pressure [Lying] Blood Pressure [Sitting (for 1 minute prior to obtaining)] Blood Pressure Mean 66 94 Blood Pressure Mean [Lying] Blood Pressure Mean [Sitting (for 1 minute prior to obtaining)] Pulse Ox 95 89 Oxygen Delivery Method Room Air Room Air Oxygen Flow Rate (L/min) 07/16/24 18:34 07/16/24 19:00 07/16/24 19:13 Temperature Temperature Source Pulse Rate 97 101 H Pulse Rate [Lying] Pulse Rate [Sitting (for 1 minute prior to obtaining)] Respiratory Rate 23 H 23 H 16 Respiratory Effort Respiratory Pattern Blood Pressure 107/77 116/79 Blood Pressure [Lying] Blood Pressure [Sitting (for 1 minute prior to obtaining)] Blood Pressure Mean 84 89 Blood Pressure Mean [Lying] Blood Pressure Mean [Sitting (for 1 minute prior to obtaining)] Pulse Ox 92 93 95 Oxygen Delivery Method Room Air Oxygen Flow Rate (L/min) 07/16/24 19:15 07/16/24 19:30 07/16/24 19:31 Temperature Temperature Source Pulse Rate 118 H 108 H Pulse Rate [Lying] 112 H Pulse Rate [Sitting (for 1 minute prior to obtaining)] 123 H Respiratory Rate 24 H Respiratory Effort Respiratory Pattern Blood Pressure 90/65 80/64 L Blood Pressure [Lying] 116/79 Blood Pressure [Sitting (for 1 minute prior to obtaining)] 80/64 L Blood Pressure Mean 71 71 Blood Pressure Mean [Lying] 91 Blood Pressure Mean [Sitting (for 1 minute prior to obtaining)] 69 Pulse Ox 98 96 Oxygen Delivery Method Nasal Cannula Oxygen Flow Rate (L/min) 2 07/16/24 20:00 07/16/24 20:30 07/16/24 21:00 Temperature Temperature Source Pulse Rate 105 H 99 Pulse Rate [Lying] Pulse Rate [Sitting (for 1 minute prior to obtaining)] Respiratory Rate 13 12 Respiratory Effort Respiratory Pattern Blood Pressure 95/68 111/77 105/73 Blood Pressure [Lying] Blood Pressure [Sitting (for 1 minute prior to obtaining)] Blood Pressure Mean 76 86 85 Blood Pressure Mean [Lying] Blood Pressure Mean [Sitting (for 1 minute prior to obtaining)] Pulse Ox 96 96 96 Oxygen Delivery Method Nasal Cannula Oxygen Flow Rate (L/min) 2 07/16/24 21:30 07/16/24 22:00 07/16/24 22:30 Temperature Temperature Source Pulse Rate 102 H 93 Pulse Rate [Lying] Pulse Rate [Sitting (for 1 minute prior to obtaining)] Respiratory Rate 21 H 22 H Respiratory Effort Respiratory Pattern Blood Pressure 109/71 122/83 H 126/88 H Blood Pressure [Lying] Blood Pressure [Sitting (for 1 minute prior to obtaining)] Blood Pressure Mean 84 95 99 Blood Pressure Mean [Lying] Blood Pressure Mean [Sitting (for 1 minute prior to obtaining)] Pulse Ox 95 95 93 Oxygen Delivery Method Nasal Cannula Oxygen Flow Rate (L/min) 2 07/16/24 23:00 Temperature Temperature Source Pulse Rate 103 H Pulse Rate [Lying] Pulse Rate [Sitting (for 1 minute prior to obtaining)] Respiratory Rate 24 H Respiratory Effort Respiratory Pattern Blood Pressure 138/85 H Blood Pressure [Lying] Blood Pressure [Sitting (for 1 minute prior to obtaining)] Blood Pressure Mean 102 Blood Pressure Mean [Lying] Blood Pressure Mean [Sitting (for 1 minute prior to obtaining)] Pulse Ox 94 Oxygen Delivery Method Nasal Cannula Oxygen Flow Rate (L/min) 2 Positive well nourished and well developed General Appearance ED: well developed and NAD HEENT HEENT Narrative: Mild dry mucosal membranes. normocephalic and atraumatic Eyes General Eye ED: Yes normal appearance of both eyes Neck full ROM Chest Wall Chest: Negative for tenderness Resp normal respiratory effort and normal air movement Effort and Inspection: symmetric chest movement; Negative for respiratory distress Cardio regular rhythm and no murmurs Rate: tachycardic Peripheral Pulses: pulses 2+ throughout GI normal to inspection, nondistended, normoactive bowel sounds and non-tender GI Narrative: Suprapubic ventral hernia reducible, nontender Palpation: Negative for guarding or rebound tenderness present Extremity normal to inspection General Extremety ED: Negative for edema or tenderness General Extremity: Negative for edema Neuro oriented x3 and no sensory deficits noted Sensorium / Orientation: awake and alert Skin no rashes or lesions noted and no wounds MDM MDM MDM Narrative Medical decision making narrative: Interventions / MDM: Differential diagnosis: Viral syndrome, influenza, syncope Diagnosis considered but do not suspect: N/A My EKG interpretation: Sinus tachycardia rate of 133, no ST or T wave changes. EKG #2 at 2251: Sinus rate of 100, no ST changes. Imaging independently reviewed and interpreted by myself: 2 view chest x-ray: No acute process. External documents reviewed: N/A Test considered but not ordered:N/A ED course: Patient tachycardic with decreased p.o. intake. Increasing cough with myalgias. Tachycardia likely from decreased p.o. intake. Will establish IV for fluids. Will check basic labs, COVID, flu, RSV. Two-view chest x-ray. Will reevaluate. 1709: Called back to the room patient went to x-ray rapid was called due to syncopal episode. He was sitting upright for a lateral x-ray, reported by data reduction technician and his eyes rolled back he passed out. He was agonal breathing by time he came back to room he is back to normal. He states he felt increasing thirst at that time. Blood glucose check 229. Alert and awake on my evaluation. IV fluids are running heart rate down to 120s. Had blood pressure 84/65. Likely vasovagal episode. Awaiting test results. Current hemoglobin 13.9 white count 12.1. 1800: Creatinine 1.28 previously 0.91. Sodium 134 potassium 4.1. Blood pressure 89/59 heart rate 110s on recheck. Influenza A positive. COVID and RSV negative. Chest x-ray interpreted myself negative for any acute process. Awaiting final read. Will give additional liter of fluids. Discussed results with patient. Will reevaluate after additional fluids. 0: After 2 L of fluid heart rate did improve, attempted to ambulate however and per nursing patient is unstable and he was orthostatic positive dropping from 110s to 80s. He is continued on fluids. He had a syncopal episode with influenza A. With worsening symptoms while in the ED with syncopal episode, discussed admission however requests being transferred to [facility]. Will work on transfer at this time. 2021: I spoke with [facility] transfer with Dr. Alegre, discussed patient's history and findings and day 3 of symptoms. Outside the window for Tamiflu. However aches excepted for influenza with syncope. Will await bed for transfer. 2230: Nursing reported patient had some chest discomfort. Repeat EKG shows no acute findings. Awaiting bed for transport. Re-evaluation: stable Disposition discussed with patient/family/significant other: Patient Case discussed with consulting clinician: [facility] Hospitalist This note was generated with [employer] dictation software. It may contain incorrect words, spelling, and punctuation that were not noted in checking the note before signing. Lab Data Attestation: I reviewed the patient's lab results. Labs: Laboratory Results - last 24 hr 07/16/24 07/16/24 07/16/24 15:56 16:28 17:06 WBC 12.1 H RBC 4.49 L Hgb 13.9 Hct 42.2 MCV 94.0 MCH 31.0 MCHC 32.9 RDW Std Deviation 43.0 RDW Coeff of Devin 12.5 Plt Count 255 MPV 11.7 Immature Gran % (Auto) 0.700 Neut % (Auto) 76.5 H Lymph % (Auto) 13.2 L Cedar % (Auto) 6.9 Eos % (Auto) 2.2 Baso % (Auto) 0.5 Absolute Neuts (auto) 9.3 H Absolute Lymphs (auto) 1.60 Nucleated RBC % 0 Sodium 134 L Potassium 4.1 Chloride 106 Carbon Dioxide 16.0 L Anion Gap 12 BUN 18 Creatinine 1.28 Estim Creat Clear Calc 153.81 Est GFR (MDRD) Af Amer 82 Est GFR (MDRD) Non-Af 68 BUN/Creatinine Ratio 14.1 Glucose 262 H Calcium 8.5 POC Glucose 229 H 294 H Radiography Diagnostic Testing: Clinical Impression(s) from Imaging Studies Chest X-Ray 07/16/24 17:05 IMPRESSION: Negative chest radiograph given limitations. Reading Location: [facility] Discharge Plan Triage Chief Complaint: General Illness ED Provider: Tl Arambula Dx/Rx/DC Orders Clinical Impression: Influenza A, Dehydration, Syncope, Orthostasis, Apnea, sleep, Hyperglycemia Prescriptions: No Action ibuprofen 200 mg capsule 200 mg PO Q6H PRN (Reason: fever or pain) fluticasone propionate 50 mcg/actuation spray,suspension 2 spray INTRANASAL DAILY Primary Care Provider: Gerald Soria Referrals: Paul Allen MD [Med Staff - Active Staff] - Print Language: Bruneian Disposition Disposition: DC/Tx to Another Type of HCF
[2024-07-16] MEDS: 0.9% Normal Saline (1000mL) 1,000 ML 1000 ML IV (16:44)
[2024-07-16] MEDS: Acetaminophen 500 MG Tablet 1000 MG PO (16:44)
[2024-07-16 16:46] LABS: Absolute Neutrophil Count 9.3 X10^3/uL (2.0-7.7); Basophil# 0.06 X10^3/uL; Basophil% 0.5 % (0-1); Eosinophil# 0.27 X10^3/uL; Eosinophils% 2.2 % (0-5); Hematocrit 42.2 % (40-54); Hemoglobin 13.9 g/dL (13.0-16.5); Lymphocyte % 13.2 % (19-41); Mean Corp Hgb Conc 32.9 g/dL (32-36); Mean Platelet Vol. 11.7 fl (6.2-12.0); Monocyte# 0.83 X10^3/uL; Monocyte% 6.9 % (0-10); NRBC Flagged by Analyzer 0 % (0-5); Neutrophil # 9.25 X10^3/uL (2.7-7.7); Neutrophil % 76.5 % (47-70); Platelet Count 255 K/mm3 (150-450); RBC Distribution Width CV 12.5 % (11.6-14.6); Red Blood Count 4.49 M/mm3 (4.6-6.2); White Blood Count 12.1 K/mm3 (4.4-11.0)
--- NOTE | 2024-07-16 16:51 | ED.RN ---
pt. bed appears to be wet w/o odor. pt. denies presence of incontinence. sister brought clothes for him to change into, but pt. denies need for assistance changing and switching linens despite education regarding potential skin break down.
--- NOTE | 2024-07-16 17:05 | RAD_ITS ---
PROCEDURE: CHEST PA AND LATERAL REASON FOR EXAM: 34-year-old male. Syncopal episode, woke up confused, agonal breathing, feels dehydrated. TECHNIQUE: Frontal and lateral views of the chest. COMPARISON: None. FINDINGS: Visualization is limited by body habitus. The heart size is normal. The mediastinal contour is unremarkable. Low lung volumes bilaterally. No focal consolidation, pleural effusion or pneumothorax. The bones are unremarkable. RAD/Chest PA and Lateral IMPRESSION: Negative chest radiograph given limitations. Reading Location: [id number]
--- NOTE | 2024-07-16 17:07 | ED.RN ---
190: RAPID CALLED IN CT D/T PT. HIS EYE ROLLED INTO THE BACK OF HIS HEAD AND HE STARTED AGONAL BREATHING. THIS NURSE, Lauren WYLIE RESPONDED TO X-RAY. PT. FOUND PALE, W/ AGONAL BREATHING. SYNCOPAL EPISODE LASTING LESS THAN 30 SECONDS. PT. WOKE UP CONFUSED AND STATING I WAS JUST REALLY THIRSTY. 1905: PT. BROUGHT BACK TO ROOM. BLOOD SUGAR OBTAINED, DOCTOR TO BEDSIDE, AND CALLED FOR REPEAT EKG. PT. DENIES PAIN AT THIS TIME.
[2024-07-16 17:21] LABS: Anion Gap 12 (5-15); BUN 18 mg/dL (7-18); BUN/Creat Ratio 14.1 RATIO (10-20); Calcium,Total 8.5 mg/dL (8.5-10.1); Chloride 106 mmol/L (98-107); Creatinine, Serum 1.28 mg/dL (0.70-1.30); EST Glomerular Filtration Rate 68 mL/min (>60); Est Glom Filt Rate - Afr Amer 82 mL/min (>60); Estimated Creatinine Clearance 153.81 ml/min; Glucose 262 mg/dL (74-106); Potassium 4.1 mmol/L (3.5-5.1); Sodium Level 134 mmol/L (136-145)
[2024-07-16 17:24] LABS: Bedside Glucose 294 mg/dL (74-106)
[2024-07-16] MEDS: 0.9% Normal Saline (1000mL) 1,000 ML 999 ML IV (18:11)
--- NOTE | 2024-07-16 18:41 | ED.RN ---
PT. MOTHER, GARY READ, CALLED REQUESTING UPDATE ON PT. PER PT. REQUEST IT WAS OKAY TO PROVIDE MEDICAL INFO. MOTHER UPDATED ON PT. STATUS AT THIS TIME
[2024-07-16] MEDS: 0.9% Normal Saline (1000mL) 1,000 ML 150 ML IV (19:44)
--- NOTE | 2024-07-16 22:30 | EKG12_ITS ---
Test Reason : CP Blood Pressure : */* mmHG Vent. Rate : 133 BPM Atrial Rate : 133 BPM P-R Int : 148 ms QRS Dur : 92 ms QT Int : 300 ms P-R-T Axes : 27 23 56 degrees QTcB Int : 446 ms Sinus tachycardia with occasional Premature ventricular complexes Otherwise normal ECG Confirmed by Julio C Hu ([id number]), newspaper editor managing KAMLESH GRIGSBY ([id number]) on 07/17/2024 10:04:13 AM Referred By: SAUL Confirmed By: Julio C Hu
[2024-07-17] VITALS (20 sets, daily range): BP systolic 101–147; BP diastolic 60–93; PULSE 77–117; RESP 15–24; TEMP 36.8–37.3; O2SAT 88–98; BMI 63.8
--- NOTE | 2024-07-17 00:06 | EX.ED.DYSGE1 ---
HPI History of Present Illness Chief Complaint: General Illness [facility] Medical History Bilateral foot pain Hypersomnolence Chronic diarrhea Morbid obesity COVID-19 Umbilical hernia Chronic neck pain Lymphedema Migraines Cellulitis History of fracture Chronic bronchitis Seasonal allergies Home Medications ?Medication ?Instructions ?Recorded ?Last Taken ?Type ibuprofen 200 mg capsule 200 mg PO Q6H PRN fever or pain 04/24/21 Unknown History fluticasone propionate 50 2 spray intranasal DAILY 07/16/24 Unknown History mcg/actuation nasal spray,suspension Allergy/AdvReac Type Severity Reaction Status Date / Time No Known Allergies Allergy Verified 07/16/24 15:49 Family History Father Cancer Hypertension Hyperlipemia Diabetes Heart disease Mother Cancer Hyperlipemia Breast cancer Diabetes Sister Diabetes Other Asthma Surgical History History of local excision of skin lesion Social History Smoking Status: Never smoker alcohol intake: never substance use type: does not use EXAM Physical Exam Const Vital Signs: 07/16/24 15:44 07/16/24 16:30 07/16/24 16:30 Temperature 96.4 F L Temperature Source Axillary Pulse Rate 129 H 121 H Pulse Rate [Lying] Pulse Rate [Sitting (for 1 minute prior to obtaining)] Respiratory Rate 20 H 20 H Respiratory Effort Normal Respiratory Pattern Normal Blood Pressure 100/70 75/56 L Blood Pressure [Lying] Blood Pressure [Sitting (for 1 minute prior to obtaining)] Blood Pressure Mean 80 62 Blood Pressure Mean [Lying] Blood Pressure Mean [Sitting (for 1 minute prior to obtaining)] Pulse Ox 97 92 Oxygen Delivery Method Room Air Room Air Oxygen Flow Rate (L/min) 07/16/24 16:33 07/16/24 16:42 07/16/24 17:02 Temperature Temperature Source Pulse Rate 125 H 123 H Pulse Rate [Lying] Pulse Rate [Sitting (for 1 minute prior to obtaining)] Respiratory Rate 21 H 33 H Respiratory Effort Normal Respiratory Pattern Normal Blood Pressure 84/65 L Blood Pressure [Lying] Blood Pressure [Sitting (for 1 minute prior to obtaining)] Blood Pressure Mean 71 Blood Pressure Mean [Lying] Blood Pressure Mean [Sitting (for 1 minute prior to obtaining)] Pulse Ox 93 Oxygen Delivery Method Room Air Oxygen Flow Rate (L/min) 07/16/24 17:05 07/16/24 17:05 07/16/24 17:30 Temperature Temperature Source Pulse Rate 116 H 115 H Pulse Rate [Lying] Pulse Rate [Sitting (for 1 minute prior to obtaining)] Respiratory Rate 14 23 H Respiratory Effort Respiratory Pattern Blood Pressure 119/74 119/74 56/33 L Blood Pressure [Lying] Blood Pressure [Sitting (for 1 minute prior to obtaining)] Blood Pressure Mean 89 84 42 Blood Pressure Mean [Lying] Blood Pressure Mean [Sitting (for 1 minute prior to obtaining)] Pulse Ox 94 Oxygen Delivery Method Room Air Oxygen Flow Rate (L/min) 07/16/24 17:31 07/16/24 17:37 07/16/24 17:40 Temperature Temperature Source Pulse Rate 112 H 120 H Pulse Rate [Lying] Pulse Rate [Sitting (for 1 minute prior to obtaining)] Respiratory Rate 20 H 21 H Respiratory Effort Respiratory Pattern Blood Pressure 86/58 L 89/59 L Blood Pressure [Lying] Blood Pressure [Sitting (for 1 minute prior to obtaining)] Blood Pressure Mean 67 68 Blood Pressure Mean [Lying] Blood Pressure Mean [Sitting (for 1 minute prior to obtaining)] Pulse Ox 95 91 95 Oxygen Delivery Method Room Air Room Air Oxygen Flow Rate (L/min) 07/16/24 18:00 07/16/24 18:30 07/16/24 18:33 Temperature Temperature Source Pulse Rate 96 Pulse Rate [Lying] Pulse Rate [Sitting (for 1 minute prior to obtaining)] Respiratory Rate 24 H Respiratory Effort Respiratory Pattern Blood Pressure 98/53 L 115/86 H Blood Pressure [Lying] Blood Pressure [Sitting (for 1 minute prior to obtaining)] Blood Pressure Mean 66 94 Blood Pressure Mean [Lying] Blood Pressure Mean [Sitting (for 1 minute prior to obtaining)] Pulse Ox 95 89 Oxygen Delivery Method Room Air Room Air Oxygen Flow Rate (L/min) 07/16/24 18:34 07/16/24 19:00 07/16/24 19:13 Temperature Temperature Source Pulse Rate 97 101 H Pulse Rate [Lying] Pulse Rate [Sitting (for 1 minute prior to obtaining)] Respiratory Rate 23 H 23 H 16 Respiratory Effort Respiratory Pattern Blood Pressure 107/77 116/79 Blood Pressure [Lying] Blood Pressure [Sitting (for 1 minute prior to obtaining)] Blood Pressure Mean 84 89 Blood Pressure Mean [Lying] Blood Pressure Mean [Sitting (for 1 minute prior to obtaining)] Pulse Ox 92 93 95 Oxygen Delivery Method Room Air Oxygen Flow Rate (L/min) 07/16/24 19:15 07/16/24 19:30 07/16/24 19:31 Temperature Temperature Source Pulse Rate 118 H 108 H Pulse Rate [Lying] 112 H Pulse Rate [Sitting (for 1 minute prior to obtaining)] 123 H Respiratory Rate 24 H Respiratory Effort Respiratory Pattern Blood Pressure 90/65 80/64 L Blood Pressure [Lying] 116/79 Blood Pressure [Sitting (for 1 minute prior to obtaining)] 80/64 L Blood Pressure Mean 71 71 Blood Pressure Mean [Lying] 91 Blood Pressure Mean [Sitting (for 1 minute prior to obtaining)] 69 Pulse Ox 98 96 Oxygen Delivery Method Nasal Cannula Oxygen Flow Rate (L/min) 2 07/16/24 20:00 07/16/24 20:30 07/16/24 21:00 Temperature Temperature Source Pulse Rate 105 H 99 Pulse Rate [Lying] Pulse Rate [Sitting (for 1 minute prior to obtaining)] Respiratory Rate 13 12 Respiratory Effort Respiratory Pattern Blood Pressure 95/68 111/77 105/73 Blood Pressure [Lying] Blood Pressure [Sitting (for 1 minute prior to obtaining)] Blood Pressure Mean 76 86 85 Blood Pressure Mean [Lying] Blood Pressure Mean [Sitting (for 1 minute prior to obtaining)] Pulse Ox 96 96 96 Oxygen Delivery Method Nasal Cannula Oxygen Flow Rate (L/min) 2 07/16/24 21:30 07/16/24 22:00 07/16/24 22:30 Temperature Temperature Source Pulse Rate 102 H 93 Pulse Rate [Lying] Pulse Rate [Sitting (for 1 minute prior to obtaining)] Respiratory Rate 21 H 22 H Respiratory Effort Respiratory Pattern Blood Pressure 109/71 122/83 H 126/88 H Blood Pressure [Lying] Blood Pressure [Sitting (for 1 minute prior to obtaining)] Blood Pressure Mean 84 95 99 Blood Pressure Mean [Lying] Blood Pressure Mean [Sitting (for 1 minute prior to obtaining)] Pulse Ox 95 95 93 Oxygen Delivery Method Nasal Cannula Oxygen Flow Rate (L/min) 2 07/16/24 23:00 07/16/24 23:30 07/17/24 00:00 Temperature Temperature Source Pulse Rate 103 H 102 H 111 H Pulse Rate [Lying] Pulse Rate [Sitting (for 1 minute prior to obtaining)] Respiratory Rate 24 H 21 H 23 H Respiratory Effort Respiratory Pattern Blood Pressure 138/85 H 102/72 121/83 H Blood Pressure [Lying] Blood Pressure [Sitting (for 1 minute prior to obtaining)] Blood Pressure Mean 102 81 97 Blood Pressure Mean [Lying] Blood Pressure Mean [Sitting (for 1 minute prior to obtaining)] Pulse Ox 94 96 97 Oxygen Delivery Method Nasal Cannula Room Air Oxygen Flow Rate (L/min) 2 [facility] Lab Data Labs: Laboratory Results - last 24 hr 07/16/24 07/16/24 07/16/24 15:56 16:28 17:06 WBC 12.1 H RBC 4.49 L Hgb 13.9 Hct 42.2 MCV 94.0 MCH 31.0 MCHC 32.9 RDW Std Deviation 43.0 RDW Coeff of Devin 12.5 Plt Count 255 MPV 11.7 Immature Gran % (Auto) 0.700 Neut % (Auto) 76.5 H Lymph % (Auto) 13.2 L Glades % (Auto) 6.9 Eos % (Auto) 2.2 Baso % (Auto) 0.5 Absolute Neuts (auto) 9.3 H Absolute Lymphs (auto) 1.60 Nucleated RBC % 0 Sodium 134 L Potassium 4.1 Chloride 106 Carbon Dioxide 16.0 L Anion Gap 12 BUN 18 Creatinine 1.28 Estim Creat Clear Calc 153.81 Est GFR (MDRD) Af Amer 82 Est GFR (MDRD) Non-Af 68 BUN/Creatinine Ratio 14.1 Glucose 262 H Calcium 8.5 POC Glucose 229 H 294 H Radiography Diagnostic Testing: Clinical Impression(s) from Imaging Studies Chest X-Ray 07/16/24 17:05 IMPRESSION: Negative chest radiograph given limitations. Reading Location: [facility] Discharge Plan Triage Chief Complaint: General Illness ED Provider: Tl Arambula Dx/Rx/DC Orders Clinical Impression: Influenza A, Dehydration, Syncope, Orthostasis, Apnea, sleep, Hyperglycemia Prescriptions: No Action ibuprofen 200 mg capsule 200 mg PO Q6H PRN (Reason: fever or pain) fluticasone propionate 50 mcg/actuation spray,suspension 2 spray INTRANASAL DAILY Primary Care Provider: Gerald Soria Referrals: Paul Allen MD [Med Staff - Active Staff] - Print Language: Japanese Disposition Disposition: DC/Tx to Another Type of HCF
[2024-07-17] MEDS: Ketorolac 15 MG/ML Vial IV (00:48)
--- NOTE | 2024-07-17 08:39 | NURSING ---
[facility] TRANSFER HAD NO UPDATE ON BED SITUATION. POSSIBILITY OF LATER TODAY AFTER THEY HAVE SOME DISCHARGES.
[2024-07-17 08:52] LABS: Bedside Glucose 122 mg/dL (74-106)
[2024-07-17] MEDS: Acetaminophen 500 MG Tablet 1000 MG PO (11:17)
--- NOTE | 2024-07-17 15:52 | ED.RN ---
pt. updated by this Rn that [facility] still did not have a bed for him and they could no longer give us an approximation of when a bed would be available. Pt. agreeable to possible admission at [facility] while waiting for a bed elsewhere. Pt. cleaned with bath wipes after a BM. tele pads replaced and meal tray given.
--- NOTE | 2024-07-17 16:40 | PCM.HP.STD ---
HPI - General General Date of Admission: 07/17/24 Date of Service: 07/17/24 Chief Complaint: Fatigue/Malaise HPI Narrative TRAE MEREDITH, is a 34 M who presented to the emergency department at [facility] on 07/16/2024 with a chief complaint of fatigue, myalgias, and productive cough. The patient denied fevers and had no vomiting or diarrhea. His symptoms started 3 days prior to presentation. He also decreased appetite with decreased p.o. liquid and solid intake. He does have known sick contacts with another sister who just got diagnosed with influenza A. He does have a history of obstructive sleep apnea for which he wears CPAP. He does not have a history of tobacco abuse. He states his cough has been productive of some yellowish sputum intermittently. Yesterday, on presentation he was quite dry and ER physician was called back to his room for a syncopal episode. Blood glucose at that time was 229 and his vital signs showed a blood pressure of 84/65. Was felt that this was vasovagal versus orthostatic and he was given IV fluids. Symptoms did improve with IV fluids and his heart rate improved. Orthostatic blood pressures were assessed and positive. He was diagnosed with influenza A and requested transfer to a [facility] facility and transfer was initiated. Last evening the case was discussed with Dr. Alegre, who accepted him for transfer but they were awaiting bed. They both agree that he is outside the window for Tamiflu being 3+ days since initiation of symptoms. Patient was in the ER for about 24 hours and no bed was yet available. The patient still wanted to wait for [facility]--> they were called and bed availability was still not clear and the patient agreed to be admitted here until bed became available in [place]. I did discuss with him that he may clinically improve and be able to be discharged prior to bed availability in [place] depending on hospital course. He did indicate his sister is bringing in his CPAP. He indicated he does not want to see Dr. Clayton Belcher while hospitalized. Vital signs at the time of admission showed a temperature of 98.2, heart rate 107, blood pressure 147/89, respiratory 18, oxygen saturation was 88% on room air and 93% on 3 L nasal cannula. CBC is overtly unremarkable. He does have a left shift with a 79.9% neutrophilia. Chemistry panel shows mild hyponatremia the sodium of 135, BUN of 21 and a serum creatinine of 0.97. Serum glucose was 132. Liver functions are normal. Chest x-ray is unremarkable. Patient was admitted to the medical floor and then finally did get a bed at [place] however once a bed became available [facility] Medical History Bilateral foot pain Hypersomnolence Chronic diarrhea Morbid obesity COVID-19 Umbilical hernia Chronic neck pain Lymphedema Migraines Cellulitis History of fracture Chronic bronchitis Seasonal allergies Home Medications ?Medication ?Instructions ?Recorded ?Last Taken ?Type ibuprofen 200 mg capsule 200 mg PO Q6H PRN fever or pain 04/24/21 Unknown History fluticasone propionate 50 2 spray intranasal DAILY 07/16/24 Unknown History mcg/actuation nasal spray,suspension Allergy/AdvReac Type Severity Reaction Status Date / Time No Known Allergies Allergy Verified 07/16/24 15:49 Family History Father Cancer Hypertension Hyperlipemia Diabetes Heart disease Mother Cancer Hyperlipemia Breast cancer Diabetes Sister Diabetes Other Asthma Surgical History History of local excision of skin lesion Social History Smoking Status: Never smoker alcohol intake: never substance use type: does not use ROS Constitutional Constitutional: Reports anorexia, chills, fatigue, malaise and weakness; Denies change in weight, fever(s), night sweats or other Eyes Eyes: Denies blurry vision, change in eye color, change in vision, discharge from eye(s), double vision, erythema, eye pain, loss of vision or other ENT HEENT: Denies abnormal hearing, dysphagia, ear pain, epistaxis, headache(s), hearing loss, nasal congestion, nasal discharge, post nasal drip, sinus pressure, sore throat or other Cardiovascular Cardiovascular: Reports dyspnea on exertion, lightheadedness, rapid heart rate and syncope; Denies chest pain, claudication, edema, orthopnea, palpitations, paroxysmal nocturnal dyspnea or other Respiratory/Chest Respiratory/Chest: Reports cough, dyspnea, excessive phlegm production, productive cough, shortness of breath at rest, shortness of breath with exertion and wheezing; Denies hemoptysis or other Gastrointestinal Gastrointestinal: Denies abdominal pain, coffee ground emesis, constipation, diarrhea, dyspepsia, hematemesis, hematochezia, loose stools, melena, nausea, vomiting or other Genitourinary Genitourinary: Denies burning urination, difficulty urinating, dysuria, hematuria, nocturia, urinary frequency, urinary hesitancy, urinary incontinence, urinary urgency or other Musculoskeletal Musculoskeletal: Denies arthralgias, back pain, joint pain, joint stiffness, joint swelling, myalgias, neck pain or other Neurologic Neurologic: Denies abnormal gait, abnormal speech, confusion, disequilibrium, dizziness, focal weakness, headache(s), numbness, paresthesias, seizure-like activity, seizures, syncope, tingling, tremor(s) or other Psychiatric Psychiatric: Denies anxiety, depression, homicidal ideation, suicidal ideation or other Endocrine Endocrinology: Denies change in body appearance, cold intolerance, excessive sweating, heat intolerance, polydipsia, polyuria or other Hematologic/Lymphatic Hematologic/Lymphatic: Denies anemia, easy bleeding, easy bruising, lymphadenopathy or other Allergic/Immunologic Allergic/Immunologic: Denies rhinitis, hives, eczemia, asthma or other Vital Signs Vital Signs Vital Signs: 07/16/24 16:42 07/16/24 17:02 07/16/24 17:05 Temperature Temperature Source Pulse Rate 125 H 123 H 116 H Pulse Rate [Lying] Pulse Rate [Sitting (for 1 minute prior to obtaining)] Respiratory Rate 21 H 33 H 14 Respiratory Effort Respiratory Pattern Blood Pressure 84/65 L 119/74 Blood Pressure [Lying] Blood Pressure [Sitting (for 1 minute prior to obtaining)] Blood Pressure Mean 71 89 Blood Pressure Mean [Lying] Blood Pressure Mean [Sitting (for 1 minute prior to obtaining)] Pulse Ox 93 94 Oxygen Delivery Method Room Air Room Air Oxygen Flow Rate (L/min) 07/16/24 17:05 07/16/24 17:30 07/16/24 17:31 Temperature Temperature Source Pulse Rate 115 H 112 H Pulse Rate [Lying] Pulse Rate [Sitting (for 1 minute prior to obtaining)] Respiratory Rate 23 H 20 H Respiratory Effort Respiratory Pattern Blood Pressure 119/74 56/33 L Blood Pressure [Lying] Blood Pressure [Sitting (for 1 minute prior to obtaining)] Blood Pressure Mean 84 42 Blood Pressure Mean [Lying] Blood Pressure Mean [Sitting (for 1 minute prior to obtaining)] Pulse Ox 95 Oxygen Delivery Method Room Air Oxygen Flow Rate (L/min) 07/16/24 17:37 07/16/24 17:40 07/16/24 18:00 Temperature Temperature Source Pulse Rate 120 H Pulse Rate [Lying] Pulse Rate [Sitting (for 1 minute prior to obtaining)] Respiratory Rate 21 H Respiratory Effort Respiratory Pattern Blood Pressure 86/58 L 89/59 L 98/53 L Blood Pressure [Lying] Blood Pressure [Sitting (for 1 minute prior to obtaining)] Blood Pressure Mean 67 68 66 Blood Pressure Mean [Lying] Blood Pressure Mean [Sitting (for 1 minute prior to obtaining)] Pulse Ox 91 95 Oxygen Delivery Method Room Air Oxygen Flow Rate (L/min) 07/16/24 18:30 07/16/24 18:33 07/16/24 18:34 Temperature Temperature Source Pulse Rate 96 Pulse Rate [Lying] Pulse Rate [Sitting (for 1 minute prior to obtaining)] Respiratory Rate 24 H 23 H Respiratory Effort Respiratory Pattern Blood Pressure 115/86 H Blood Pressure [Lying] Blood Pressure [Sitting (for 1 minute prior to obtaining)] Blood Pressure Mean 94 Blood Pressure Mean [Lying] Blood Pressure Mean [Sitting (for 1 minute prior to obtaining)] Pulse Ox 95 89 92 Oxygen Delivery Method Room Air Room Air Room Air Oxygen Flow Rate (L/min) 07/16/24 19:00 07/16/24 19:13 07/16/24 19:15 Temperature Temperature Source Pulse Rate 97 101 H 118 H Pulse Rate [Lying] Pulse Rate [Sitting (for 1 minute prior to obtaining)] Respiratory Rate 23 H 16 Respiratory Effort Respiratory Pattern Blood Pressure 107/77 116/79 90/65 Blood Pressure [Lying] Blood Pressure [Sitting (for 1 minute prior to obtaining)] Blood Pressure Mean 84 89 71 Blood Pressure Mean [Lying] Blood Pressure Mean [Sitting (for 1 minute prior to obtaining)] Pulse Ox 93 95 98 Oxygen Delivery Method Oxygen Flow Rate (L/min) 07/16/24 19:30 07/16/24 19:31 07/16/24 20:00 Temperature Temperature Source Pulse Rate 108 H 105 H Pulse Rate [Lying] 112 H Pulse Rate [Sitting (for 1 minute prior to obtaining)] 123 H Respiratory Rate 24 H 13 Respiratory Effort Respiratory Pattern Blood Pressure 80/64 L 95/68 Blood Pressure [Lying] 116/79 Blood Pressure [Sitting (for 1 minute prior to obtaining)] 80/64 L Blood Pressure Mean 71 76 Blood Pressure Mean [Lying] 91 Blood Pressure Mean [Sitting (for 1 minute prior to obtaining)] 69 Pulse Ox 96 96 Oxygen Delivery Method Nasal Cannula Oxygen Flow Rate (L/min) 2 07/16/24 20:30 07/16/24 21:00 07/16/24 21:30 Temperature Temperature Source Pulse Rate 99 102 H Pulse Rate [Lying] Pulse Rate [Sitting (for 1 minute prior to obtaining)] Respiratory Rate 12 21 H Respiratory Effort Respiratory Pattern Blood Pressure 111/77 105/73 109/71 Blood Pressure [Lying] Blood Pressure [Sitting (for 1 minute prior to obtaining)] Blood Pressure Mean 86 85 84 Blood Pressure Mean [Lying] Blood Pressure Mean [Sitting (for 1 minute prior to obtaining)] Pulse Ox 96 96 95 Oxygen Delivery Method Nasal Cannula Oxygen Flow Rate (L/min) 2 07/16/24 22:00 07/16/24 22:30 07/16/24 22:36 Temperature Temperature Source Pulse Rate 93 Pulse Rate [Lying] Pulse Rate [Sitting (for 1 minute prior to obtaining)] Respiratory Rate 22 H Respiratory Effort Normal Respiratory Pattern Normal Blood Pressure 122/83 H 126/88 H Blood Pressure [Lying] Blood Pressure [Sitting (for 1 minute prior to obtaining)] Blood Pressure Mean 95 99 Blood Pressure Mean [Lying] Blood Pressure Mean [Sitting (for 1 minute prior to obtaining)] Pulse Ox 95 93 Oxygen Delivery Method Nasal Cannula Oxygen Flow Rate (L/min) 2 07/16/24 23:00 07/16/24 23:30 07/17/24 00:00 Temperature Temperature Source Pulse Rate 103 H 102 H 111 H Pulse Rate [Lying] Pulse Rate [Sitting (for 1 minute prior to obtaining)] Respiratory Rate 24 H 21 H 23 H Respiratory Effort Respiratory Pattern Blood Pressure 138/85 H 102/72 121/83 H Blood Pressure [Lying] Blood Pressure [Sitting (for 1 minute prior to obtaining)] Blood Pressure Mean 102 81 97 Blood Pressure Mean [Lying] Blood Pressure Mean [Sitting (for 1 minute prior to obtaining)] Pulse Ox 94 96 97 Oxygen Delivery Method Nasal Cannula Room Air Oxygen Flow Rate (L/min) 2 07/17/24 00:30 07/17/24 01:00 07/17/24 01:30 Temperature Temperature Source Pulse Rate 111 H Pulse Rate [Lying] Pulse Rate [Sitting (for 1 minute prior to obtaining)] Respiratory Rate 22 H Respiratory Effort Respiratory Pattern Blood Pressure 107/82 H 107/79 109/78 Blood Pressure [Lying] Blood Pressure [Sitting (for 1 minute prior to obtaining)] Blood Pressure Mean 91 87 88 Blood Pressure Mean [Lying] Blood Pressure Mean [Sitting (for 1 minute prior to obtaining)] Pulse Ox 95 Oxygen Delivery Method Room Air Oxygen Flow Rate (L/min) 07/17/24 02:00 07/17/24 02:30 07/17/24 03:00 Temperature Temperature Source Pulse Rate 100 101 H Pulse Rate [Lying] Pulse Rate [Sitting (for 1 minute prior to obtaining)] Respiratory Rate 22 H 23 H Respiratory Effort Respiratory Pattern Blood Pressure 108/75 111/77 121/86 H Blood Pressure [Lying] Blood Pressure [Sitting (for 1 minute prior to obtaining)] Blood Pressure Mean 87 87 97 Blood Pressure Mean [Lying] Blood Pressure Mean [Sitting (for 1 minute prior to obtaining)] Pulse Ox 96 96 Oxygen Delivery Method Nasal Cannula Nasal Cannula Oxygen Flow Rate (L/min) 2 2 07/17/24 03:30 07/17/24 04:00 07/17/24 06:00 Temperature Temperature Source Pulse Rate 97 102 H 96 Pulse Rate [Lying] Pulse Rate [Sitting (for 1 minute prior to obtaining)] Respiratory Rate 23 H 21 H 18 Respiratory Effort Respiratory Pattern Blood Pressure 137/93 H 110/62 101/63 Blood Pressure [Lying] Blood Pressure [Sitting (for 1 minute prior to obtaining)] Blood Pressure Mean 105 77 75 Blood Pressure Mean [Lying] Blood Pressure Mean [Sitting (for 1 minute prior to obtaining)] Pulse Ox 95 98 96 Oxygen Delivery Method Nasal Cannula Room Air Oxygen Flow Rate (L/min) 2 07/17/24 08:00 07/17/24 10:00 07/17/24 12:00 Temperature 98.2 F Temperature Source Oral Pulse Rate 109 H 107 H 114 H Pulse Rate [Lying] Pulse Rate [Sitting (for 1 minute prior to obtaining)] Respiratory Rate 20 H 20 H 15 Respiratory Effort Respiratory Pattern Blood Pressure 104/60 136/78 H 105/79 Blood Pressure [Lying] Blood Pressure [Sitting (for 1 minute prior to obtaining)] Blood Pressure Mean 74 97 87 Blood Pressure Mean [Lying] Blood Pressure Mean [Sitting (for 1 minute prior to obtaining)] Pulse Ox 97 96 98 Oxygen Delivery Method Nasal Cannula Nasal Cannula Room Air Oxygen Flow Rate (L/min) 2 2 07/17/24 14:24 07/17/24 15:54 07/17/24 15:54 Temperature Temperature Source Pulse Rate 103 H 107 H Pulse Rate [Lying] Pulse Rate [Sitting (for 1 minute prior to obtaining)] Respiratory Rate 22 H 18 Respiratory Effort Respiratory Pattern Blood Pressure 143/83 H 147/89 H Blood Pressure [Lying] Blood Pressure [Sitting (for 1 minute prior to obtaining)] Blood Pressure Mean 103 108 Blood Pressure Mean [Lying] Blood Pressure Mean [Sitting (for 1 minute prior to obtaining)] Pulse Ox 92 88 93 Oxygen Delivery Method Room Air Nasal Cannula Oxygen Flow Rate (L/min) 3 Weight Weight: 220.9 kg Body Mass Index (BMI) 64.2 Physical Exam Const alert, oriented x3, no apparent distress and well nourished; Negative for average body habitus or healthy appearing Constitutional Narrative: Morbidly obese, middle-aged, white male, sitting up in bed, appears comfortable, nontoxic General Appearance: cooperative HEENT normocephalic, head/scalp atraumatic, hearing grossly normal bilaterally and moist oral mucous membranes HEENT Narrative: Mallampati 4, dentition is good, no thrush Resp normal respiratory effort, No no retractions, No no use of accessory muscles and No clear to auscultation bilaterally Resp Narrative: Scattered inspiratory expiratory wheezes most notably at the bases bilaterally Auscultation: wheezes Cardio regular rate, regular rhythm, S1 normal heart sound, S2 normal heart sound, no murmurs, no rub, no gallops and no clicks Cardio Narrative: Distant heart tones due to body habitus GI normal to inspection, nondistended, normoactive bowel sounds, soft to palpation and non-tender GI Narrative: Large protuberant abdomen Extremity no clubbing, cyanosis or edema Extremity Narrative: 2+ pedal pulses Neuro oriented x3, moves all extremities and no focal motor deficits Speech: speech normal Psych affect normal Psych Narrative: Eye contact is good and patient interacts appropriately Results Lab / Micro Data 07/17/24 17:07 07/17/24 17:07 Labs: Laboratory Results - last 24 hr 07/16/24 16:28: WBC 12.1 H, RBC 4.49 L, Hgb 13.9, Hct 42.2, MCV 94.0, MCH 31.0, MCHC 32.9, RDW Std Deviation 43.0, RDW Coeff of Devin 12.5, Plt Count 255, MPV 11.7, Immature Gran % (Auto) 0.700, Neut % (Auto) 76.5 H, Lymph % (Auto) 13.2 L, Dawson % (Auto) 6.9, Eos % (Auto) 2.2, Baso % (Auto) 0.5, Absolute Neuts (auto) 9.3 H, Absolute Lymphs (auto) 1.60, Nucleated RBC % 0, Sodium 134 L, Potassium 4.1, Chloride 106, Carbon Dioxide 16.0 L, Anion Gap 12, BUN 18, Creatinine 1.28, Estim Creat Clear Calc 153.81, Est GFR (MDRD) Af Amer 82, Est GFR (MDRD) Non-Af 68, BUN/Creatinine Ratio 14.1, Glucose 262 H, Calcium 8.5 07/16/24 17:06: POC Glucose 294 H 07/17/24 08:32: POC Glucose 122 H Micro: Microbiology 07/16/24 16:28 Mucosa - Nose SARS-CoV-2, Influenza & RSV (PCR) - Final Influenzae A Imaging Radiology Impression Chest X-Ray 07/16/24 17:05 IMPRESSION: Negative chest radiograph given limitations. Reading Location: [facility] Assessment & Plan Assessment/Plan (1) Orthostasis: (2) Syncope: (3) Hyperglycemia: (4) Influenza A: (5) Dehydration: PLAN: Plan Acute hypoxia secondary to influenza A infection -Out of the window for Tamiflu -Will check sputum culture with low threshold for antibiotic initiation -Solu-Medrol 40 every 8 -As needed and scheduled nebulizers -Incentive spirometer -Acapella 10 times per 2 hours while awake -Continue supplemental oxygen at 3 L -Wean as able -Will need ambulatory pulse ox prior to discharge -Initial plan was for transfer to [facility] however bed became available on the evening of 07/17/2024 and patient declined transfer Syncope secondary to orthostatic hypotension secondary to dehydration -Event occurred yesterday in the emergency department -Orthostatics were positive the time -Patient has been fluid responsive -Resolved with no further events after being monitored on telemetry -No further workup required Hyponatremia -Mild -Like related to the above -Monitor with repeat lab in a.m. [place]/suspected obesity hypoventilation syndrome -Continue CPAP at at bedtime -Meeting oxygen at discharge Morbid obesity -BMI 63.9 -Complicates treatment, prognosis, outcomes DVT prophylaxis -Lovenox subcu 40 mg twice daily CODE STATUS -Full code as discussed prior to admission Charges/Coding Visit Charges Inpatient E&M: 68064 Init Hosp L2
[2024-07-17 17:26] LABS: Absolute Lymphocyte Count 0.82 X10^3/uL (0.83-4.51); Absolute Neutrophil Count 6.2 X10^3/uL (2.0-7.7); Basophil# 0.01 X10^3/uL; Basophil% 0.1 % (0-1); Hematocrit 32.5 % (40-54); Lymphocyte # 0.82 X10^3/ul (0.83-4.51); Lymphocyte % 10.6 % (19-41); Mean Corp Hgb Conc 33.8 g/dL (32-36); Mean Corpuscular Hgb 31.2 pg (27.0-32.0); Mean Corpuscular Volume 92.1 fL (80-94); Mean Platelet Vol. 11.5 fl (6.2-12.0); Monocyte# 0.69 X10^3/uL; Monocyte% 8.9 % (0-10); NRBC Flagged by Analyzer 0 % (0-5); Neutrophil # 6.16 X10^3/uL (2.7-7.7); Neutrophil % 79.9 % (47-70); Platelet Count 181 K/mm3 (150-450); RBC Distribution Width CV 12.3 % (11.6-14.6); RBC Distribution Width SD 41.1 fl (35.1-43.9); Red Blood Count 3.53 M/mm3 (4.6-6.2); White Blood Count 7.7 K/mm3 (4.4-11.0)
[2024-07-17 17:41] LABS: ALB/GLOB Ratio 0.9 RATIO (0.9-2.4); AST(SGOT) 22 U/L (15-37); Alanine Aminotransfer ALT/SGPT 28 U/L (16-61); Albumin, Serum 3.2 g/dL (3.2-5.0); Alkaline Phosphatase 56 U/L (45-117); Anion Gap 9 (5-15); BUN 21 mg/dL (7-18); BUN/Creat Ratio 21.6 RATIO (10-20); Calcium,Total 8.7 mg/dL (8.5-10.1); Chloride 100 mmol/L (98-107); Creatinine, Serum 0.97 mg/dL (0.70-1.30); EST Glomerular Filtration Rate 93 mL/min (>60); Est Glom Filt Rate - Afr Amer 112 mL/min (>60); Estimated Creatinine Clearance 202.97 ml/min; Globulin 3.4 g/dL (2.2-4.2); Glucose 132 mg/dL (74-106); Potassium 3.9 mmol/L (3.5-5.1); Protein, Total 6.6 g/dL (6.4-8.2); Sodium Level 134 mmol/L (136-145)
--- NOTE | 2024-07-17 20:16 | NURSING ---
transfer center called from [facility]. pt has a bed at [facility]. 2 sound 200 bed 1. report should be called to the nurse at [phone].
--- NOTE | 2024-07-17 20:51 | NURSING ---
Notified patient that a bed was ready for him at [facility] and patient seems agreeable. However, later he called me into his room and said that he and his mom decided for him to stay at [facility]. Since he wasn't too sick, they thought it made sense for him to stay here at [facility]. Patient is agreeable to this, but wants to do whatever his mom says.
[2024-07-17] MEDS: Ibuprofen 400 MG Tablet 800 MG PO (23:00)
[2024-07-17] MEDS: Enoxaparin 40 MG/0.4 ML Syringe SC (23:00)
--- NOTE | 2024-07-17 23:29 | NURSING ---
late entry. called [facility] transfer line and updated them that patient no longer wants to be transferred.
[2024-07-17] MEDS: MELATONIN 3 MG TABLET PO (23:32)
[2024-07-18] VITALS (15 sets, daily range): BP systolic 124–146; BP diastolic 62–111; PULSE 88–111; RESP 18–24; TEMP 36.6–37.1; O2SAT 88–96; BMI 63.8
--- NOTE | 2024-07-18 00:50 | CPS ---
Patient sleeping with own CPAP unit brought in from home for the night.
[2024-07-18] MEDS: Ibuprofen 400 MG Tablet 800 MG PO ×3 (06:04→22:02)
[2024-07-18] MEDS: 0.9% Saline Lock 10 ML Syringe IV ×3 (06:04→22:30)
[2024-07-18 06:50] LABS: Absolute Lymphocyte Count 0.65 X10^3/uL (0.83-4.51); Basophil# 0.01 X10^3/uL; Basophil% 0.1 % (0-1); Hematocrit 30.5 % (40-54); Lymphocyte # 0.65 X10^3/ul (0.83-4.51); Lymphocyte % 9.2 % (19-41); Mean Corp Hgb Conc 32.8 g/dL (32-36); Mean Corpuscular Hgb 30.4 pg (27.0-32.0); Mean Corpuscular Volume 92.7 fL (80-94); Mean Platelet Vol. 10.8 fl (6.2-12.0); Monocyte# 0.33 X10^3/uL; Monocyte% 4.7 % (0-10); NRBC Flagged by Analyzer 0 % (0-5); Neutrophil # 5.99 X10^3/uL (2.7-7.7); Platelet Count 179 K/mm3 (150-450); RBC Distribution Width CV 12.2 % (11.6-14.6); RBC Distribution Width SD 41.5 fl (35.1-43.9); Red Blood Count 3.29 M/mm3 (4.6-6.2); White Blood Count 7.1 K/mm3 (4.4-11.0)
[2024-07-18 07:25] LABS: Anion Gap 5 (5-15); BUN 19 mg/dL (7-18); BUN/Creat Ratio 19.5 RATIO (10-20); Calcium,Total 8.9 mg/dL (8.5-10.1); Chloride 101 mmol/L (98-107); Creatinine, Serum 0.98 mg/dL (0.70-1.30); EST Glomerular Filtration Rate 92 mL/min (>60); Est Glom Filt Rate - Afr Amer 112 mL/min (>60); Estimated Creatinine Clearance 200.07 ml/min; Glucose 130 mg/dL (74-106); Magnesium 2.4 mg/dL (1.6-2.6); Potassium 4.3 mmol/L (3.5-5.1); Sodium Level 134 mmol/L (136-145)
[2024-07-18] MEDS: Fluticasone 0.05% 1 SPRAY NASAL.SRY 2 SPRAY NASAL (09:52)
[2024-07-18] MEDS: Enoxaparin 40 MG/0.4 ML Syringe SC ×2 (09:52→22:02)
--- NOTE | 2024-07-18 10:18 | CASEMGMT ---
Addendum entered by Leticia Rosas 07/18/24 16:02: Received tc from [facility], they are not in network with pt insurance. Addendum entered by Leticia Rosas 07/18/24 13:19: Pt requested a bariatric shower chair. Hospitalist willing to sign for this. Provided pt with a local in network list of DME companies, pt chose [employer] and would like this to be own, not rent to own. Pt would like this delivered to his home. Should [employer] have only rent to own, pt would like to use [employer]. Referral sent to [employer] at this time via [employer]. Original Note: CHEMA CANTU Assessment: Face to Face with pt for initial transition planning/care coordination assessment. CHEMA CANTU introduced self and role at [facility], pt voices understanding and consents to assessment. Pt is A&O x4 and answers all questions appropriately at this time. Pt sitting up in chair on RA in no distress. Pt states he does not want Dr. Terri Belcher to ever see him nor does he ever want Remdesivir rx'd to him. He is aware that this will be noted in assessment. Care providers, pharmacy, and demographics verified/updated. Admitting Dx: hypoxia with influenza A Strata Score: 1 PCP:Estella Specialists:Denies Preferred Pharmacy:[facility] Insurance: [facility] Community Plan DOROTHY Prescription Benefit: yes LNOK: Johanna Cunningham, mother Living Arrangements: Pt lives with mother in a single story home with 2 steps to enter. Pt reports he is I in ADLs/IADLs and denies concerns at home. Transportation: Pt drives self and denies concerns with transportation. DME:CPAP HHC/SNF: Denies hx of Pt states no concerns with going home at time of dc. Discussed pt obtaining a pox and pt states that he only wants one that gives the wave length on it. He will check [employer] when he goes to see if it is available. Pt states no further concerns/needs. CM to follow. Advised pt to ask CM if any further questions/concerns/needs arise, voices understanding. Pt Goal: Home Plan: Home Sumit BEAR CM
[2024-07-18] MEDS: Budesonide Respules 0.5 MG/2 ML AMPUL.NEB. INHALATION ×2 (11:24→19:34)
--- NOTE | 2024-07-18 17:58 | PN.HOSP_ITS ---
Reason for Visit Reason for Visit: Diagnoses Dehydration (07/17/24) Orthostatic hypotension (07/17/24) Influenza due to other identified influenza virus with other respiratory manifestations (07/17/24) Syncope and collapse (07/17/24) Hyperglycemia, unspecified (07/17/24) Subjective Subjective Patient was seen and examined today, he is currently on room air. Objective Data Objective Data Vital Signs: Vital Signs Temp Pulse Resp BP Pulse Ox O2 Del Method O2 Flow Rate 98.6 F 98 18 146/73 H 92 Room Air 3 07/18/24 14:24 07/18/24 14:24 07/18/24 14:24 07/18/24 14:24 07/18/24 14:24 07/18/24 14:27 07/18/24 01:20 Oxygen Flow Rate (L/min) 3 Oxygen Delivery Method Room Air Weight: 219.5 kg Body Mass Index (BMI) 63.8 Intake & Output: Intake and Output for Last 24 Hours 07/16/24 07/17/24 07/18/24 23:59 23:59 23:59 Intake Total 3150 / 3150 1800 / 2000 400 / 400 Balance 3150 / 3150 1800 / 2000 400 / 400 Lab / Micro Data 07/18/24 06:38 07/18/24 06:38 Labs: Laboratory Results - last 24 hr 07/18/24 06:38: WBC 7.1, RBC 3.29 L, Hgb 10.0 L, Hct 30.5 L, MCV 92.7, MCH 30.4, MCHC 32.8, RDW Std Deviation 41.5, RDW Coeff of Devin 12.2, Plt Count 179, MPV 10.8, Immature Gran % (Auto) 1.000 H, Neut % (Auto) 85.0 H, Lymph % (Auto) 9.2 L , [place] % (Auto) 4.7, Eos % (Auto) 0.0, Baso % (Auto) 0.1, Absolute Neuts (auto) 6.0, Absolute Lymphs (auto) 0.65 L, Nucleated RBC % 0, Sodium 134 L, Potassium 4.3, Chloride 101, Carbon Dioxide 28.0, Anion Gap 5, BUN 19 H, Creatinine 0.98, Estim Creat Clear Calc 200.07, Est GFR (MDRD) Af Amer 112, Est GFR (MDRD) Non-Af 92, BUN/Creatinine Ratio 19.5, Glucose 130 H, Calcium 8.9, Phosphorus 3.0, Magnesium 2.4 Micro: Microbiology 07/17/24 23:20 Sputum, Expectorated/Coughed Gram Stain - Final 07/16/24 16:28 Mucosa - Nose SARS-CoV-2, Influenza & RSV (PCR) - Final Influenzae A Physical Exam Const alert, oriented x3, no apparent distress and healthy appearing Constitutional Narrative: Patient has class III obesity General Appearance: cooperative, well kempt and well developed Orientation / Consciousness: awake, oriented to person, oriented to place and oriented to time HEENT normocephalic, head/scalp atraumatic and moist oral mucous membranes Eyes PERRL, EOMs intact bilaterally and conjunctivae normal Neck supple, no JVD, thyroid normal and no carotid bruits General: trachea midline Resp normal respiratory effort, no retractions and no use of accessory muscles Resp Narrative: Patient has marked expiratory wheezing bilaterally Auscultation: Negative for rales, rhonchi or wheezes Cardio regular rate, regular rhythm, S1 normal heart sound, S2 normal heart sound, no murmurs, no rub and no gallops GI normal to inspection, nondistended, normoactive bowel sounds, soft to palpation, non-tender and non-distended Extremity no clubbing, cyanosis or edema Skin no rashes or lesions noted General Skin Exam: no breakdown Neuro oriented x3, CN's II-XII intact bilaterally, no focal motor deficits and no sensory deficits noted Sensorium / Orientation: awake and alert Speech: speech normal Psych affect normal Assessment & Plan Assessment/Plan (1) Influenza A: PLAN: Plan 1. Influenza A infection with marked bronchospasm-I feel the patient would benefit from continued aerosol treatments, I will reevaluate him tomorrow for possible discharge #2 class III obesity-complicates care, management, recovery, and prognosis #3 obstructive sleep apnea-patient is using his CPAP machine Total clinical time spent by myself addressing the patient's medical issues, reviewing all of his data, and collaborating with patient's care team: 35 minutes Charges/Coding Visit Charges Inpatient E&M: 73828 Subs Hosp L2
[2024-07-18] MEDS: Ipratropium/Albuterol Sulfate 3 ML AMPUL.NEB INHALATION (19:34)
[2024-07-18] MEDS: guaiFENesin 10 ML UDC (200MG/10ML) 20 ML PO (22:30)
[2024-07-18] MEDS: Ondansetron 4 MG/2 ML Vial IV (22:30)
[2024-07-18] MEDS: Senna/Docusate Sodium 1 Tablet 2 TABLET PO (22:30)
[2024-07-19] VITALS (8 sets, daily range): BP systolic 110–150; BP diastolic 54–76; PULSE 77–103; RESP 16–20; TEMP 36.6; O2SAT 87–98; BMI 63.8
[2024-07-19] MEDS: Ibuprofen 400 MG Tablet 800 MG PO ×2 (06:17→14:43)
[2024-07-19] MEDS: Ipratropium/Albuterol Sulfate 3 ML AMPUL.NEB INHALATION ×2 (07:36→13:57)
[2024-07-19] MEDS: Budesonide Respules 0.5 MG/2 ML AMPUL.NEB. INHALATION (07:36)
--- NOTE | 2024-07-19 10:15 | CASEMGMT ---
Call placed to [facility] who states that they are in network with [facility] [employer]. They are able to order and ship Blake bedside commode and bill [facility] with proper order. If order rec'd by noon today, BSC will be delivered tomorrow (no wknd deliveries). Order will need to include pts weight. They also request phone call once order is faxed so they can look for it and make it priority to be processed in time. (p) [phone] (f) [phone]. CHEMA CM updated.
[2024-07-19] MEDS: Furosemide 40 MG/4 ML Vial IV (11:11)
[2024-07-19] MEDS: 0.9% Saline Lock 10 ML Syringe IV (11:12)
[2024-07-19] MEDS: Fluticasone 0.05% 1 SPRAY NASAL.SRY 2 SPRAY NASAL (11:12)
[2024-07-19] MEDS: Enoxaparin 40 MG/0.4 ML Syringe SC (11:12)
--- NOTE | 2024-07-19 11:20 | CASEMGMT ---
Addendum entered by Genie Kemp 07/19/24 12:21: Home O2 amb testing has been completed. Pt does not qualify for home O2. Addendum entered by Genie Kemp 07/19/24 11:33: CHEMA CANTU spoke w/Carlos @ [facility]. He was made aware script being faxed for shower chair today and he verifies that will be shipped to pt's home tomorrow. Original Note: CHEMA CANTU NOTE: Pt made aware [facility] is in-network and can deliver heavy duty shower chair to his home tomorrow. He states that will work well, and states if he is not discharged home today, his mom will be @ the home tomorrow and can receive the delivery. Only a PO box on file. Pt provided his physical address of: [address] [place] [id number]. Script for heavy duty shower chair faxed to [facility] as well at the physical address for it to shipped to. Pt denies having other discharge needs at this time. Dianne OROZCO RN, CM
--- NOTE | 2024-07-19 15:11 | DCINST_ITS ---
Discharge Instructions Diet Discharge Diet: No restrictions DC O2, CPAP, BIPAP needs RN Home O2 Qualification: Home O2 Qualification: Is the patient on home oxygen No 07/19/24 12:17 Home O2 Qualification: AT REST 1- Pulse Ox at rest 94 07/19/24 12:17 Home O2 Qualification: WITH AMBULATION 1- Pulse Ox with ambulation 91 07/19/24 12:17 1- Oxygen Flow Rate with 0 07/19/24 12:17 ambulation Home O2 Discharge instructions: No Dressing / Incision Discharge Activity: Return to Normal Activity Return to work on:: 07/23/24 Weight Bearing Status: Full weight bearing Follow Up Care Test Results: Test results from this visit will be discussed in further detail at your follow- up appointment, if applicable. Discharge Plan Admission Admit Date/Time: 07/17/24 18:32 Primary Reason for Your Visit: Influenza A, mild hypoxia Attending Provider: Dhruv Waters Primary Care Provider: Gerald Soria Consulting Providers: Mary Reed Instructions Forms: Work / School Excuse Additional Instructions / Restrictions: Use the inhaler Dr. Pritchard prescribed to you in addition to the inhaler I prescribed Discharge Orders/Prescriptions Prescriptions: New albuterol sulfate 90 mcg/actuation HFA aerosol inhaler 2 puff inhalation TID Qty: 6.7 0RF lactulose 20 gram/30 mL solution 20 g PO BID Qty: 1500 0RF Rx Instructions: Use 30 cc once or twice a day Continued ibuprofen 200 mg capsule 200 mg PO Q6H PRN (Reason: fever or pain) fluticasone propionate 50 mcg/actuation spray,suspension 2 spray INTRANASAL DAILY Referrals / Follow Up: Gerald Soria MD [Primary Care Provider] - Within 2 Weeks Paul Allen MD [Med Staff - Active Staff] - Disposition Disposition (needs filled in before D/C Order can be placed): Home, Self Care
[2024-07-19] MEDS: guaiFENesin 10 ML UDC (200MG/10ML) 20 ML PO (15:16)
--- NOTE | 2024-07-19 15:23 | PCM.DC.SUM ---
Providers Date of Admission: 07/17/24 Date of Discharge: 07/19/24 Primary Care Physician: Dr. Gerald Soria MD Reason For Visit: HYPOXIA WITH INFLUENZA A Diagnosis Discharge Diagnosis (1) Influenza A: Status: Acute Code(s): J10.1 - Influenza due to other identified influenza virus with other respiratory manifestations Plan 1. Influenza A infection with marked bronchospasm-I feel the patient would benefit from continued aerosol treatments, I will reevaluate him tomorrow for possible discharge #2 class III obesity-complicates care, management, recovery, and prognosis #3 obstructive sleep apnea-patient is using his CPAP machine Total clinical time spent by myself addressing the patient's medical issues, reviewing all of his data, and collaborating with patient's care team: 35 minutes Medications at Discharge Home Medications ibuprofen 200 mg capsule 200 mg PO Q6H PRN fever or pain 04/24/21 fluticasone propionate 50 mcg/actuation nasal spray,suspension 2 spray intranasal DAILY 07/16/24 albuterol sulfate 90 mcg/actuation aerosol inhaler 2 puff inhalation TID #6.7 grams 07/19/24 lactulose 20 gram/30 mL oral solution 20 g (30 mL) PO BID #1,500 mL 07/19/24 Hospital Course Operations None Procedures None Summary of Care Provided Minutes Spent on Discharge: 30 Hospital Course: This 34-year-old white male was seen in the emergency room at [facility] with a chief complaint of fatigue, myalgias, and productive cough. Workup included a CBC which was unremarkable, patient had a BUN of 21 and serum creatinine of 0.97, chest x-ray was unremarkable, patient's influenza test was positive for influenza A. Patient's pulse ox on room air was 88%, on 3 L via nasal cannula it was 93%. Patient initially requested transfer to [facility] for further care, the patient changed his mind and he was admitted to [place] [address] for hypoxia and influenza A. He was placed on IV Solu-Medrol, aerosol treatments, and he was out of the window for Tamiflu. Patient improved during his hospital stay and was weaned off oxygen. On 07/19/2024, patient was seen and examined:alert, oriented x3, no apparent distress and healthy appearing Constitutional Narrative: Patient has class III obesity General Appearance: cooperative, well kempt and well developed Orientation / Consciousness: awake, oriented to person, oriented to place and oriented to time HEENT normocephalic, head/scalp atraumatic and moist oral mucous membranes Eyes PERRL, EOMs intact bilaterally and conjunctivae normal Neck supple, no JVD, thyroid normal and no carotid bruits General: trachea midline Resp normal respiratory effort, no retractions and no use of accessory muscles Resp Narrative: Patient has marked expiratory wheezing bilaterally Auscultation: Negative for rales, rhonchi or wheezes Cardio regular rate, regular rhythm, S1 normal heart sound, S2 normal heart sound, no murmurs, no rub and no gallops GI normal to inspection, nondistended, normoactive bowel sounds, soft to palpation, non-tender and non-distended Extremity no clubbing, cyanosis or edema Skin no rashes or lesions noted General Skin Exam: no breakdown Neuro oriented x3, CN's II-XII intact bilaterally, no focal motor deficits and no sensory deficits noted Sensorium / Orientation: awake and alert Speech: speech normal Psych affect normal Patient was felt to be stable for discharge home on 07/19/2024. Weight / BMI Weight Weight: 219.5 kg Body Mass Index (BMI) 63.8 ABG / Lab / Microbiology Data 07/18/24 06:38 07/18/24 06:38 Microbiology: Microbiology 07/17/24 23:20 Sputum, Expectorated/Coughed Gram Stain - Final 07/17/24 23:20 Sputum, Expectorated/Coughed Respiratory Culture - Final 07/16/24 16:28 Mucosa - Nose SARS-CoV-2, Influenza & RSV (PCR) - Final Influenzae A D/C Instructions Discharge Diet: No restrictions Return to work on: 07/23/24 Weight Bearing Status: Full weight bearing DC O2, CPAP, BIPAP Needs RN Home O2 Qualification: Home O2 Qualification: Is the patient on home oxygen No 07/19/24 12:17 Home O2 Qualification: AT REST 1- Pulse Ox at rest 94 07/19/24 12:17 Home O2 Qualification: WITH AMBULATION 1- Pulse Ox with ambulation 91 07/19/24 12:17 1- Oxygen Flow Rate with 0 07/19/24 12:17 ambulation Home O2 Discharge instructions: No Meaningful Use Info Meaningful Use Meaningful Use Diagnoses (Choose all that apply): None applicable Ischemic Stroke Statin Dosing Therapy Reference: STATIN DOSE THERAPY REFERENCE: * Patients > 75 years receive moderate or high dose statin therapy. * Patients 75 years or YOUNGER should receive HIGH intensity statin dose unless contraindicated. You will be required to document reason for non-treatment if statin daily dose does not meet guidelines. HIGH DOSE STATIN THERAPY DAILY Atorvastatin > than or = to 40 mg Rosuvastatin > than or = to 20 mg Amlodipine + Atorvastatin > than or = to 2.5/40 mg Ezetimibe + Simvastatin 10/80 mg Simvastatin 80mg Discharge Plan Admission Admit Date/Time: 07/17/24 17:50 Primary Reason for Your Visit: Influenza A, mild hypoxia Attending Provider: Dhruv Waters Primary Care Provider: Gerald Soria Consulting Providers: Mary Reed Instructions Forms: Work / School Excuse Additional Instructions / Restrictions: Use the inhaler Dr. Pritchard prescribed to you in addition to the inhaler I prescribed Discharge Orders/Prescriptions Prescriptions: New albuterol sulfate 90 mcg/actuation HFA aerosol inhaler 2 puff inhalation TID Qty: 6.7 0RF lactulose 20 gram/30 mL solution 20 g PO BID Qty: 1500 0RF Rx Instructions: Use 30 cc once or twice a day Continued ibuprofen 200 mg capsule 200 mg PO Q6H PRN (Reason: fever or pain) fluticasone propionate 50 mcg/actuation spray,suspension 2 spray INTRANASAL DAILY Referrals / Follow Up: Gerald Soria MD [Primary Care Provider] - Within 2 Weeks Paul Allen MD [Med Staff - Active Staff] - Disposition Disposition (needs filled in before D/C Order can be placed): Home, Self Care Charges/Coding Visit Charges Inpatient E&M: 09545 Disch Hosp
== END 2024-07-19 18:08 | disposition home or self-care (01) | DRG 113 ==
LOC: ED 07-17 16:04 → MS3 07-18 07:29
PROVIDERS: Emergency Medicine; Admitting Provider Internal Medicine; Emergency Provider Emergency Medicine; PCP Family Medicine; Visit Provider Internal Medicine
DX: J10.1 Influenza due to other identified influenza virus with other respiratory manifestations (principal); Z68.44 Body mass index [BMI] 60.0-69.9, adult; G47.33 Obstructive sleep apnea (adult) (pediatric); E66.813 Obesity, class 3; Z86.16 Personal history of COVID-19
CPT/HCPCS: 36415; 71046; 80048; 80053; 82962; 83735; 84100; 85025; 87070; 87205; 87631; 93005; 94640; 94668; 99285; A4216; J1940; J2405